=== PATIENT | male | born 1935 | race Caucasian/White ===

== ENCOUNTER → 2016-09-13 | Outpatient (CLI) | payer MEDICARE, OTHER ==
[~2016-09-13] MED LIST: ALLO300T2 PO; ASPI81 PO; CARV6.25 PO; CO Q100C9 PO; EZET10 PO; HYDR-3129 PO; LEVEMIR SQ; METF-324 PO; NITR0.4S SL; ROSU10 PO
[2016-09-13 13:21] LABS: AUTOMATED NEUTROPHIL # 4.8 TH/MM3 (1.8-7.7); BASOPHIL # 0.1 TH/MM3 (0-0.2); BASOPHIL % 0.8 % (0.0-2.0); EOSINOPHIL # 0.1 TH/MM3 (0-0.4); EOSINOPHIL % 1.9 % (0.0-4.0); HEMATOCRIT 36.8 % (39.0-51.0); HEMO FLAGS DIFF FINAL; LYMPH % 25.5 % (9.0-44.0); MEAN CELL VOLUME 91.1 FL (80.0-100.0); MEAN CORPUSCULAR HEMOGLOBIN 29.5 PG (27.0-34.0); MEAN CORPUSCULAR HGB CONC 32.3 % (32.0-36.0); MONO % 10.3 % (0.0-8.0); NEUT % 61.5 % (16.0-70.0); PLATELET COUNT 163 TH/MM3 (150-450); RED BLOOD COUNT 4.04 MIL/MM3 (4.50-5.90); RED CELL DISTRIBUTION WIDTH 17.1 % (11.6-17.2); WHITE BLOOD COUNT 7.8 TH/MM3 (4.0-11.0)
[2016-09-13 13:38] LABS: ALT (GPT) 25 U/L (12-78); ANION GAP 5 MEQ/L (5-15); AST (GOT) 22 U/L (15-37); BICARBONATE 27.4 MEQ/L (21.0-32.0); BLOOD UREA NITROGEN 20 MG/DL (7-18); CHLORIDE 107 MEQ/L (98-107); GLOMERULAR FILTRATION RATE 61 ML/MIN (>89); GLUCOSE,FASTING 110 MG/DL (74-99); POTASSIUM 4.4 MEQ/L (3.5-5.1); SODIUM (NA) 139 MEQ/L (136-145); URIC ACID 3.7 MG/DL (2.6-7.2)
[2016-09-13 13:40] LABS: ALKALINE PHOSPHATASE 71 U/L (45-117); HDL CHOLESTEROL 51.3 MG/DL (40.0-60.0); LDL CHOLESTEROL 38 MG/DL (0-99); TOTAL BILIRUBIN ADULT 0.3 MG/DL (0.2-1.0)
[2016-09-13 17:03] LABS: HEMOGLOBIN A1a 1.1 %; HEMOGLOBIN A1b 2.2 %; HEMOGLOBIN Ao 82.2 %; HEMOGLOBIN LA1C 2.2 %; HEMOGLOBIN P3 6.1 %
== END ==
LOC: PLAB 09:28
PROVIDERS: ATTEND Family Medicine
DX: I25.10 Atherosclerotic heart disease of native coronary artery without angina pectoris (principal); E11.65 Type 2 diabetes mellitus with hyperglycemia; M10.9 Gout, unspecified
CPT/HCPCS: 36415; 80053; 80061; 83036; 84550; 85025

== ENCOUNTER → 2017-03-27 | Outpatient (CLI) | payer MEDICARE, OTHER ==
[2017-03-27 11:54] LABS: AUTOMATED NEUTROPHIL # 4.6 TH/MM3 (1.8-7.7); BASOPHIL % 0.6 % (0.0-2.0); EOSINOPHIL # 0.2 TH/MM3 (0-0.4); EOSINOPHIL % 2.5 % (0.0-4.0); HEMATOCRIT 35.6 % (39.0-51.0); HEMO FLAGS DIFF FINAL; LYMPH % 25.1 % (9.0-44.0); LYMPHOCYTE # 1.9 TH/MM3 (1.0-4.8); MEAN CELL VOLUME 92.3 FL (80.0-100.0); MEAN CORPUSCULAR HEMOGLOBIN 30.4 PG (27.0-34.0); MEAN CORPUSCULAR HGB CONC 32.9 % (32.0-36.0); MONO % 10.3 % (0.0-8.0); NEUT % 61.5 % (16.0-70.0); PLATELET COUNT 164 TH/MM3 (150-450); RED BLOOD COUNT 3.86 MIL/MM3 (4.50-5.90); RED CELL DISTRIBUTION WIDTH 15.7 % (11.6-17.2); WHITE BLOOD COUNT 7.4 TH/MM3 (4.0-11.0)
[2017-03-27 12:21] LABS: ANION GAP 6 MEQ/L (5-15); AST (GOT) 25 U/L (15-37); BICARBONATE 27.3 MEQ/L (21.0-32.0); BLOOD UREA NITROGEN 22 MG/DL (7-18); CHLORIDE 105 MEQ/L (98-107); GLOMERULAR FILTRATION RATE 53 ML/MIN (>89); GLUCOSE,FASTING 116 MG/DL (74-99); POTASSIUM 4.1 MEQ/L (3.5-5.1); SODIUM (NA) 138 MEQ/L (136-145)
[2017-03-27 12:23] LABS: ALT (GPT) 27 U/L (12-78)
[2017-03-27 12:25] LABS: ALKALINE PHOSPHATASE 64 U/L (45-117); HDL CHOLESTEROL 59.6 MG/DL (40.0-60.0); LDL CHOLESTEROL 28 MG/DL (0-99); TOTAL BILIRUBIN ADULT 0.3 MG/DL (0.2-1.0)
[2017-03-27 16:51] LABS: HEMOGLOBIN A1a 1.2 %; HEMOGLOBIN A1b 2.2 %; HEMOGLOBIN Ao 81.3 %; HEMOGLOBIN LA1C 2.3 %; HEMOGLOBIN P3 4.9 %
== END ==
LOC: PLAB 09:23
PROVIDERS: ATTEND Family Medicine
DX: E11.65 Type 2 diabetes mellitus with hyperglycemia (principal); M62.81 Muscle weakness (generalized); R06.00 Dyspnea, unspecified; I25.10 Atherosclerotic heart disease of native coronary artery without angina pectoris; M48.061 Spinal stenosis, lumbar region without neurogenic claudication
CPT/HCPCS: 36415; 80053; 80061; 83036; 85025

== ENCOUNTER → 2017-10-05 | Outpatient (CLI) | payer MEDICARE, OTHER ==
[2017-10-05 18:29] LABS: AUTOMATED NEUTROPHIL # 5.4 TH/MM3 (1.8-7.7); BASOPHIL # 0.1 TH/MM3 (0-0.2); BASOPHIL % 0.7 % (0.0-2.0); EOSINOPHIL # 0.2 TH/MM3 (0-0.4); EOSINOPHIL % 2.3 % (0.0-4.0); HEMATOCRIT 36.2 % (39.0-51.0); HEMOGLOBIN 11.8 GM/DL (13.0-17.0); LYMPHOCYTE # 2.2 TH/MM3 (1.0-4.8); MEAN CORPUSCULAR HEMOGLOBIN 30.2 PG (27.0-34.0); MEAN CORPUSCULAR HGB CONC 32.5 % (32.0-36.0); MEAN PLATELET VOLUME 9.1 FL (7.0-11.0); MONO % 9.3 % (0.0-8.0); MONOCYTE # 0.8 TH/MM3 (0-0.9); NEUT % 62.7 % (16.0-70.0); PLATELET COUNT 189 TH/MM3 (150-450); RED BLOOD COUNT 3.89 MIL/MM3 (4.50-5.90); RED CELL DISTRIBUTION WIDTH 16.5 % (11.6-17.2); WHITE BLOOD COUNT 8.7 TH/MM3 (4.0-11.0)
[2017-10-05 18:42] LABS: ALBUMIN 3.6 GM/DL (3.4-5.0); AST (GOT) 29 U/L (15-37); BICARBONATE 27.3 MEQ/L (21.0-32.0); BLOOD UREA NITROGEN 17 MG/DL (7-18); CALCIUM 8.7 MG/DL (8.5-10.1); CHLORIDE 107 MEQ/L (98-107); CREATININE 1.21 MG/DL (0.60-1.30); GLOMERULAR FILTRATION RATE 57 ML/MIN (>89); GLUCOSE,FASTING 76 MG/DL (74-99); SODIUM (NA) 142 MEQ/L (136-145)
[2017-10-05 18:43] LABS: ALT (GPT) 28 U/L (12-78); CHOLESTEROL 115 MG/DL (120-200)
[2017-10-05 18:45] LABS: ALKALINE PHOSPHATASE 72 U/L (45-117); CHOLESTEROL/ HDL RATIO 2.54 RATIO; HDL CHOLESTEROL 45.1 MG/DL (40.0-60.0); LDL CHOLESTEROL 38 MG/DL (0-99); TOTAL BILIRUBIN ADULT 0.3 MG/DL (0.2-1.0); TOTAL PROTEIN 7.6 GM/DL (6.4-8.2); TRIGLYCERIDES 159 MG/DL (42-150)
== END ==
LOC: PLAB 12:30
PROVIDERS: ATTEND Family Medicine
DX: E78.2 Mixed hyperlipidemia (principal); N18.3 Chronic kidney disease, stage 3 (moderate); E13.42 Other specified diabetes mellitus with diabetic polyneuropathy
CPT/HCPCS: 36415; 80053; 80061; 83970; 85025

== ENCOUNTER → 2017-10-13 | Outpatient (CLI) | payer MEDICARE, OTHER ==
[2017-10-13 10:22] LABS: ALBUMIN 3.6 GM/DL (3.4-5.0); AST (GOT) 25 U/L (15-37); BLOOD UREA NITROGEN 22 MG/DL (7-18); CALCIUM 8.7 MG/DL (8.5-10.1); CHLORIDE 106 MEQ/L (98-107); CREATININE 1.25 MG/DL (0.60-1.30); DIRECT BILIRUBIN ADULT 0.1 MG/DL (0.0-0.2); GLOMERULAR FILTRATION RATE 55 ML/MIN (>89); GLUCOSE,FASTING 91 MG/DL (74-99); SODIUM (NA) 141 MEQ/L (136-145)
[2017-10-13 10:25] LABS: ALKALINE PHOSPHATASE 71 U/L (45-117); ALT (GPT) 27 U/L (12-78); TOTAL BILIRUBIN ADULT 0.3 MG/DL (0.2-1.0); TOTAL PROTEIN 7.9 GM/DL (6.4-8.2)
== END ==
LOC: PLAB 08:16
PROVIDERS: ATTEND Internal Medicine Cardiovascular Disease
DX: E11.9 Type 2 diabetes mellitus without complications (principal); E78.5 Hyperlipidemia, unspecified; I10 Essential (primary) hypertension; I45.10 Unspecified right bundle-branch block
CPT/HCPCS: 36415; 80053; 82248; 82550

== ENCOUNTER 2018-04-28 12:14 | Inpatient (IN) ==
--- NOTE | 2018-04-28 13:14 | XR ---
EXAM DATE: 04/28/2018 1:07 PM EST AGE/SEX: 82 years / Male INDICATIONS: Right knee pain with no history of trauma, patient has had partial knee replacement. CLINICAL DATA: This is the patient's initial encounter. Patient reports that signs and symptoms have been present for 2 days and indicates a pain score of 10/10. MEDICAL/SURGICAL HISTORY: None. . partial rt knee replacement COMPARISON: No prior exams available for comparison. FINDINGS: There is a large suprapatellar knee joint effusion. Partial knee replacement is noted involving the m edial femoral tibial joint with prosthesis in good position. 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 Mild osteoarthritis is noted involving the lateral femoral tibial joint. There is no acute fracture or dislocation. CONCLUSION: 1. Large suprapatellar knee joint effusion. 2. Moderate osteoarthritis involving the patellofemoral joint and mild osteoarthritis involving the lateral femoral tibial joint. 3. No acute fracture or dislocation. Electronically signed by: Hu Angeles MD 04/28/2018 1:12 PM EST
--- NOTE | 2018-04-28 16:05 | ED ---
HPI General Chief Complaint: Extremity Injury, Lower Stated Complaint: Right leg complaint Time Seen by Provider: 04/28/18 15:08 History of Present Illness HPI Narrative: This patient complains of right knee pain and swelling. Duration is 48 hours. Severity is moderate. He has no injury. Denies fever. This is the only joint that is bothering him. Worse with weightbearing. Deviating factors. No exacerbating factors. He does report history of partial knee replacement there. He also has history of gout. He is never had gout in his knee but has had it in his wrist about 4 times. Related Data Allergies Allergy/AdvReac Type Severity Reaction Status Date / Time levofloxacin Allergy Severe Rash Unverified 04/28/18 12:20 Review of Systems ROS: all other systems reviewed are negative PMFSH Social History Social History Substance History: No History of Abuse Smoking Status: Never smoker How Often Do You Have a Drink Containing Alcohol: Monthly or less Recent Travel in [facility] within the Last 8 Weeks: No Recent Out of Country Travel within the Last 8 Weeks: No Immunization History Tetanus Immunization: <5 Years Exam Narrative Exam Narrative: GENERAL: Well-nourished, well-developed patient in no apparent distress. SKIN: Focused skin assessment reveals no rash and nodules. Skin is Warm and dry. HEAD: Atraumatic. Normocephalic. EYES: Pupils equal and round. No scleral icterus. No injection or drainage. ENT: No nasal bleeding or discharge. Mucous membranes pink and moist. NECK: Trachea midline. No JVD. CARDIOVASCULAR: Regular rate and rhythm. No murmur appreciated. RESPIRATORY: No accessory muscle use. Clear to auscultation. Breath sounds equal bilaterally. GASTROINTESTINAL: Abdomen soft, non-tender, nondistended. Hepatic and splenic margins not palpable. MUSCULOSKELETAL: Patient has a very large right knee effusion. There is some warmth at the knee but no redness. There are well-healed surgical scars there. No clubbing. No cyanosis. No edema. NEUROLOGICAL: Awake and alert. No obvious cranial nerve deficits. Motor grossly within normal limits. Normal speech. PSYCHIATRIC: Appropriate mood and affect; insight and judgment normal. Procedures Joint Aspiration/Injection Joint Asp./Inject. 1: Time Out Performed: No Side of Body: right Joint Aspirated: knee Ultrasound Guidance: No Skin Prep: Povidone-Iodine1% Local Anesthesia Used: other (Ethyl chloride spray) Needle Size Used: 18G Fluid Obtained: viscous Total fluid obtained (mL): 50 Patient Tolerated Procedure: well Complications: none Course Reevaluation(s) Reevaluation #1: case reviewed with Dr. Edouard - will admit to medicine service with kavitha and will see in consult Time: 18:45 Reevaluation #2: case reviewed with Dr. Taveras who accepts pt to service Time: 19:16 Initial Documented Vital Signs Temperature 98.2 F 04/28/18 12:16 Pulse Rate 84 04/28/18 12:16 Respiratory Rate 20 04/28/18 12:16 Blood Pressure 142/67 H 04/28/18 12:16 Pulse Oximetry 98 04/28/18 12:16 Last Documented Vital Signs Temperature 98.2 F 04/28/18 12:16 Pulse Rate 84 04/28/18 12:16 Respiratory Rate 20 04/28/18 12:16 Blood Pressure 142/67 H 04/28/18 12:16 Pulse Oximetry 98 04/28/18 12:16 Sign Out Sign Out Data: Patient Sign Out occurred on 04/28/18 at 17:39. Patient's care was discussed, and care was transferred from Donovan Church MD to Meli Leal. Sign Out Comment: Studies from right knee aspiration are pending other than synovial crystal fluid analysis which is negative. General labs have been ordered. Last updated by Donovan Church MD at 04/28/18 16:50 Post-Handoff Eval: Received patient in signout. Patient reports that he had a partial right knee replacement in [place] in 2002 by [facility] Dr. Deyvi Jennings was his surgeon. Patient reports that for the past 2 days, he has been having swelling and tenderness to the right knee. He did call Dr. Faria's office, he cannot be seen for another 10 days, due to the pain, patient decided to come to the emergency room for evaluation. He does not have an orthopedic surgeon here. Joint aspiration shows 900 red blood cells in the synovial fluid , 28,748 nucleated cells as well as 89% neutrophils. There is no crystals. There is concerns for possible septic joint, there was a call made to orthopedic surgeon Medical Decision Making MDM Narrative Medical decision making narrative: 82-year-old male with some pain and swelling and obvious effusion of the right knee. There is warmth without redness or fever. He has history of gout but not able to rule out septic joint without studies. Patient signed informed consent and I performed right knee aspiration under sterile conditions. See above procedure note. There were no complications. I obtained fluid which was sent to the lab for studies. If there is no evidence of infection he can be discharged to outpatient follow- up. The fluid was thick and yellow and looked at least inflammatory. Crystal analysis is negative for crystals. I had a general lab studies. None of the other joint fluid studies are complete yet. Case will be checked out to the evening physician to assist with disposition. Medical Screen Exam Complete: Yes Emergency Medical Condition: Yes Lab Data Result diagrams: 04/28/18 17:50 04/28/18 17:50 Lab Results 04/28/18 04/28/18 04/28/18 Range/Units 15:38 15:38 17:50 WBC 10.5 (4.0-11.0) th/mm3 RBC 3.88 L (4.50-5.90) mil/mm3 Hgb 12.2 L (13.0-17.0) gm/dL Hct 35.3 L (39.0-51.0) % MCV 90.9 (80.0-100.0) fL MCH 31.5 (27.0-34.0) pg MCHC 34.7 (32.0-36.0) % RDW 16.6 (11.6-17.2) % Plt Count 199 (150-450) th/mm3 MPV 9.2 (7.0-11.0) fL Neut % (Auto) 67.1 (16.0-70.0) % Lymph % (Auto) 17.6 (9.0-44.0) % [place] % (Auto) 14.3 H (0.0-8.0) % Eos % (Auto) 0.4 (0.0-4.0) % Baso % (Auto) 0.6 (0.0-2.0) % Neut # (Auto) 7.0 (1.8-7.7) th/mm3 Lymph # (Auto) 1.8 (1.0-4.8) th/mm3 [place] # (Auto) 1.5 H (0.0-0.9) th/mm3 Eos # (Auto) 0.0 (0.0-0.4) th/mm3 Baso # (Auto) 0.1 (0.0-0.2) th/mm3 WBC Differential . Differential Comment Auto diff final PT (9.8-11.6) sec INR Ratio APTT (23.4-31.7) sec Sodium (136-145) meq/L Potassium (3.5-5.1) meq/L Chloride (98-107) meq/L Carbon Dioxide (21.0-32.0) meq/L Anion Gap (5-15) meq/L BUN (7-18) mg/dL Creatinine (0.60-1.30) mg/dL Estimated GFR (>89) mL/min Random Glucose (74-106) mg/dL Calcium (8.5-10.1) mg/dL Synovial Color Yellow (Straw) Synovial Appearance Moderate H (Clear) Synovial RBC 900 H (0-0) /mm3 Synovial Nuc Cells 78458 H (0-200) /mm3 Synovial Neutrophils 89 H (0-25) % Synovial Lymphocytes 1 % Synovial Monocytes 10 % Synovial Crystals None (None) 04/28/18 04/28/18 Range/Units 17:50 17:50 WBC (4.0-11.0) th/mm3 RBC (4.50-5.90) mil/mm3 Hgb (13.0-17.0) gm/dL Hct (39.0-51.0) % MCV (80.0-100.0) fL MCH (27.0-34.0) pg MCHC (32.0-36.0) % RDW (11.6-17.2) % Plt Count (150-450) th/mm3 MPV (7.0-11.0) fL Neut % (Auto) (16.0-70.0) % Lymph % (Auto) (9.0-44.0) % [place] % (Auto) (0.0-8.0) % Eos % (Auto) (0.0-4.0) % Baso % (Auto) (0.0-2.0) % Neut # (Auto) (1.8-7.7) th/mm3 Lymph # (Auto) (1.0-4.8) th/mm3 [place] # (Auto) (0.0-0.9) th/mm3 Eos # (Auto) (0.0-0.4) th/mm3 Baso # (Auto) (0.0-0.2) th/mm3 WBC Differential Differential Comment PT 10.6 (9.8-11.6) sec INR 1.0 Ratio APTT 30.2 (23.4-31.7) sec Sodium 134 L (136-145) meq/L Potassium 4.3 (3.5-5.1) meq/L Chloride 102 (98-107) meq/L Carbon Dioxide 24.9 (21.0-32.0) meq/L Anion Gap 7 (5-15) meq/L BUN 17 (7-18) mg/dL Creatinine 1.10 (0.60-1.30) mg/dL Estimated GFR 64 L (>89) mL/min Random Glucose 120 H (74-106) mg/dL Calcium 9.2 (8.5-10.1) mg/dL Synovial Color (Straw) Synovial Appearance (Clear) Synovial RBC (0-0) /mm3 Synovial Nuc Cells (0-200) /mm3 Synovial Neutrophils (0-25) % Synovial Lymphocytes % Synovial Monocytes % Synovial Crystals (None) Imaging Data Radiologist's impression: Knee X-Ray 04/28/18 00:00 CONCLUSION: 1. Large suprapatellar knee joint effusion. 2. Moderate osteoarthritis involving the patellofemoral joint and mild osteoarthritis involving the lateral femoral tibial joint. 3. No acute fracture or dislocation. Discharge Plan Physicians Team ED Provider: Meli Leal Primary Care Provider: Theodora Pickett Status ED Status: With Doctor
[2018-04-28 17:29] LABS: Appearance,Synovial Fluid Moderate (Clear); Color,Synovial Fluid Yellow (Straw); Lymphocytes,Synovial Fluid 1 %; Neutrophils,Synovial Fluid 89 % (0-25)
[2018-04-28 18:25] LABS: Baso # (Auto) 0.1 th/mm3 (0.0-0.2); Baso % (Auto) 0.6 % (0.0-2.0); Eos % (Auto) 0.4 % (0.0-4.0); Hematocrit 35.3 % (39.0-51.0); Hemoglobin 12.2 gm/dL (13.0-17.0); Lymph # (Auto) 1.8 th/mm3 (1.0-4.8); Lymph % (Auto) 17.6 % (9.0-44.0); Mean Corpuscular HGB Conc 34.7 % (32.0-36.0); Mean Corpuscular Hemoglobin 31.5 pg (27.0-34.0); Mean Corpuscular Volume 90.9 fL (80.0-100.0); Mean Platelet Volume 9.2 fL (7.0-11.0); Mono # (Auto) 1.5 th/mm3 (0.0-0.9); Mono % (Auto) 14.3 % (0.0-8.0); Neut % (Auto) 67.1 % (16.0-70.0); Platelet Count 199 th/mm3 (150-450); Red Blood Count 3.88 mil/mm3 (4.50-5.90); Red Cell Distribution Width 16.6 % (11.6-17.2); White Blood Count 10.5 th/mm3 (4.0-11.0)
[2018-04-28 18:37] LABS: Activated Partial Thrombo Time 30.2 sec (23.4-31.7); Prothrombin Time 10.6 sec (9.8-11.6)
[2018-04-28 18:49] LABS: Calcium 9.2 mg/dL (8.5-10.1); Carbon Dioxide 24.9 meq/L (21.0-32.0); Potassium 4.3 meq/L (3.5-5.1)
[2018-04-28] MEDS ORDERED: Vancomycin Inj 1,000 MG in Sodium Chlor 0.9% Inj 250 ML IV.SIG SCH (19:00)
[2018-04-28] MEDS ORDERED: Vancomycin Consult Pharmacy OTHER PRN (19:35)
[2018-04-28] MEDS ORDERED: Bisacodyl 10 MG Supp RECTAL PRN (19:36)
[2018-04-28] MEDS ORDERED: Acetaminophen 325 MG Tablet PO PRN (19:36)
[2018-04-28] MEDS: Sod Chloride 0.9% Inj 1,000 ML IV.CONT SCH (19:51)
[2018-04-28] MEDS ORDERED: Vancomycin Inj 2,250 MG in Sodium Chlor 0.9% Inj 500 ML IV.SIG ONE (20:00)
--- NOTE | 2018-04-28 20:39 | P.HPIM ---
History of Present Illness Primary Care Physician: Theodora Pickett MD History of Present Illness: This is an 82-year-old male with no significant PMH who presented to the ER with complaints of right knee pain and swelling since (2 days ago). Denies injury/trauma. No h/o similar symptoms. No fever, chills. Pain is constant, 8/10, sharp, worse w/ movement/ambulation, non-radiating. On arrival , BP 142/67, HR 84, O2 sat 98% on RA, Afebrile. CBC essentially unremarkable. INR 1.0. Chemistry unremarkable. S/p tap in ER, Nuc 28,740 and Neutrophils 89% . S/p Vanc/Rocephin in ER. Ortho consulted, will evaluate. - Diagnosis (1) Septic joint of right knee joint (2) Knee pain Inpatient Certification: I certify that the inpatient services were ordered in accordance with Medicare regulations governing the order. This includes certification that hospital inpatient services are reasonable and necessary and in the case of services not specified as inpatient-only under 42 CFR 419.22(n), that they are appropriately provided as inpatient services in accordance to with the 2-midnight benchmark under 43 CFR 412.3(e) Estimated Total Length of Stay (Days): 2 Plans for Post Hospital Care: Not yet determined Review of Systems PAST FAMILY HISTORY: Reviewed. No h/o DM or CAD All other systems reviewed negative except as stated [facility] - History History Provided By: Patient, Family Member - Surgical History Surgical History: Surgical History (Last Reviewed 04/28/18 @ 14:53 by Nay Robins) H/O elbow surgery History of cholecystectomy History of knee replacement S/P CABG x 4 - Tobacco History Smoking Status: Never smoker - Alcohol History How Often Do You Have a Drink Containing Alcohol: Monthly or less - Substance Use History Substance History: No History of Abuse - Travel History Recent Travel in the [place] Within the Last 8 Weeks: No Recent Travel Out of the Country Within the Last 8 Weeks: No - Immunization History Tetanus Immunization: <5 Years Medications and Allergies Active Medications: Active Medications Acetaminophen (Tylenol) 650 mg PO Q4H PRN PRN Reason: Temp > 100.4 Hydrocodone Bitart/Acetaminophen ([place] 5/325) 1 tab PO Q4H PRN PRN Reason: PAIN 3-5 Hydrocodone Bitart/Acetaminophen ([place] 10/325) 1 tab PO Q4H PRN PRN Reason: PAIN 6-10 Al Hydroxide/Mg Hydroxide (Milk Of Magnesia Liq) 30 ml PO Q12H PRN PRN Reason: Mild Constipation Bisacodyl (Dulcolax Supp) 10 mg RECTAL DAILY PRN PRN Reason: SEVERE CONSITIPATION Ceftriaxone Sodium 1,000 mg/ (Sodium Chloride) 100 mls @ 200 mls/hr IV.SIG Q24H MAURA Sodium Chloride (Ns Inj) 1,000 mls @ 100 mls/hr IV.CONT .Q10H MAURA Last Admin: 04/28/18 19:51 Dose: 100 mls/hr Vancomycin HCl 2,250 mg/ (Sodium Chloride) 522.5 mls @ 250 mls/hr IV.SIG ONCE ONE Stop: 04/28/18 22:05 Lactulose (Lactulose Liq) 30 ml PO DAILY PRN PRN Reason: SEVERE CONSITIPATION Ondansetron HCl (Zofran Inj) 4 mg IV.PUSH Q6H PRN PRN Reason: NAUSEA OR VOMITING Pharmacy Profile Note (Vancomycin Consult Pharmacy) 1 each OTHER UNSCH PRN PRN Reason: Pharmacy to dose Senna/Docusate Sodium (Dionne-Colace) 1 tab PO BID MAURA Sennosides (Senokot) 17.2 mg PO Q12H PRN PRN Reason: Moderate Constipation Sodium Chloride (Ns Flush) 2 ml IV.FLUSH BID MAURA Sodium Chloride (Ns Flush) 2 ml IV.FLUSH PRN PRN PRN Reason: FLUSH AFTER USING IV ACCESS Allergies Allergy/AdvReac Type Severity Reaction Status Date / Time levofloxacin Allergy Severe Rash Unverified 04/28/18 12:20 Exam Vital signs: Vital Signs 04/28/18 12:16 04/28/18 19:00 04/28/18 20:38 Temperature 98.2 F Pulse Rate 84 96 H 94 H Respiratory Rate 20 20 20 Blood Pressure 142/67 H 148/70 H 150/72 H Pulse Oximetry 98 94 L 95 Intake & Output 04/28/18 04/28/18 04/29/18 06:59 18:59 06:59 Intake Total 100 / 100 Balance 100 / 100 Weight 90.718 kg Intake: IV 100 / 100 Rocephin Inj 1,000 MG In NS Inj 100 / 100 100 ML @ 200 mls/hr IV.SIG ONCE ONE Rx#:[id number] Narrative: PE: GENERAL: Very pleasant elderly white male in no acute distress, appears younger than stated age. SKIN: Focused skin assessment warm and dry. HEENT: PERRLA, EOMI. No scleral icterus or conjunctival pallor. No lid lag or facial droop. CARDIOVASCULAR: Regular rate and rhythm. No obvious murmurs to auscultation. No chest tenderness to palpation. RESPIRATORY: No obvious rhonchi or wheezing. Clear to auscultation. Breath sounds equal bilaterally. GASTROINTESTINAL: Abdomen soft, non-tender, nondistended. BS normal. MUSCULOSKELETAL: Extremities without clubbing, cyanosis, or edema. No obvious deformities. Right knee w/ joint effusion, no erythema, +warmth/tenderness. NEUROLOGICAL: Awake, alert and oriented x4. No focal neurologic deficits. Moving both upper and lower extremities spontaneously. PSYCHIATRIC: Appropriate mood and affect. Insight and judgment normal. Results - Labs CBC & Chem 7: 04/28/18 17:50 04/28/18 17:50 Labs: Short CBC 04/28/18 Range/Units 17:50 WBC 10.5 (4.0-11.0) th/mm3 Hgb 12.2 L (13.0-17.0) gm/dL Hct 35.3 L (39.0-51.0) % Plt Count 199 (150-450) th/mm3 BMP 04/28/18 17:50 Sodium 134 L Potassium 4.3 Chloride 102 Carbon Dioxide 24.9 BUN 17 Creatinine 1.10 Calcium 9.2 - Imaging Impressions Knee X-Ray 04/28/18 00:00 CONCLUSION: 1. Large suprapatellar knee joint effusion. 2. Moderate osteoarthritis involving the patellofemoral joint and mild osteoarthritis involving the lateral femoral tibial joint. 3. No acute fracture or dislocation. Caprini VTE Risk Assessment Caprini VTE Risk Assessment: No/Low Risk (score <= 1) VTE Pharmacological Exception Reason: High risk for bleeding Caprini Risk Assessment Model: Point Value = 1 Point Value = 2 Point Value = 3 Point Value = 5 Age 41-60 Minor surgery BMI > 25 kg/m2 Swollen legs Varicose veins or History of unexplained or recurrent spontaneous Oral contraceptives or hormone replacement Sepsis (< 1 month) Serious lung disease, including pneumonia (< 1 month) Abnormal pulmonary function Acute myocardial infarction Congestive heart failure (< 1 month) History of inflammatory bowel disease Medical patient at bed rest Age 61-74 Arthroscopic surgery Major open surgery (> 45 min) Laparoscopic surgery (> 45 min) Malignancy Confined to bed (> 72 hours) Immobilizing plaster cast Central venous access Age >= 75 History of VTE Family history of VTE Factor V Leiden Prothrombin [id number] Lupus anticoagulant Anticardiolipin antibodies Elevated serum homocysteine Heparin-induced thrombocytopenia Other congenital or acquired thrombophilia Stroke (< 1 month) Elective arthroplasty Hip, pelvis, or leg fracture Acute spinal cord injury (< 1 month) Prophylaxis Regimen: Total Risk Factor Score Risk Level Prophylaxis Regimen 0-1 Low Early ambulation 2 Moderate Order ONE of the following: *Sequential Compression Device (SCD) *Heparin 5000 units SQ BID 3-4 Higher Order ONE of the following medications: *Heparin 5000 units SQ TID *Enoxaparin/Lovenox 40 mg SQ daily (WT < 150 kg, CrCl > 30 mL/min) *Enoxaparin/Lovenox 30 mg SQ daily (WT < 150 kg, CrCl > 10-29 mL/min) *Enoxaparin/Lovenox 30 mg SQ BID (WT < 150 kg, CrCl > 30 mL/min) AND/OR *Sequential Compression Device (SCD) 5 or more Highest Order ONE of the following medications: *Heparin 5000 units SQ TID (Preferred with Epidurals) *Enoxaparin/Lovenox 40 mg SQ daily (WT < 150 kg, CrCl > 30 mL/min) *Enoxaparin/Lovenox 30 mg SQ daily (WT < 150 kg, CrCl > 10-29 mL/min) *Enoxaparin/Lovenox 30 mg SQ BID (WT < 150 kg, CrCl > 30 mL/min) AND *Sequential Compression Device (SCD) Assessment and Plan - Assessment (1) Septic joint of right knee joint Code(s): M00.9 - Pyogenic arthritis, unspecified Status: Acute (2) Knee pain Code(s): M25.569 - Pain in unspecified knee Status: Acute - Plan A/P: 1. Right Knee Septic Joint: acute onset pain/swelling 2 days ago, s/p tap w/ elevated nuc and neutrophils, +cloudy per report, s/p Vanc/Rocephin in ER. Ortho consulted by ER physician, will evaluate. Continue w/ IV abx, follow up cultures. 2. Knee Pain: secondary to above, continue w/ analgesics/antiemetics as needed. 3. DVT Prophylaxis: Pharmacologic contraindication due to risk of bleed 4. Social work for d/c planning as needed. 5. Case discussed w/ ER physician at length, labs/records/imaging reviewed by me.
[2018-04-28] MEDS: Senna/Docusate Sodium 8.6/50 MG Tablet PO SCH (23:00)
[2018-04-29] MEDS: Sod Chloride 0.9% Inj 1,000 ML IV.CONT SCH ×5 (06:37→21:00)
[2018-04-29 07:26] LABS: Baso % (Auto) 0.4 % (0.0-2.0); Eos # (Auto) 0.1 th/mm3 (0.0-0.4); Eos % (Auto) 0.8 % (0.0-4.0); Hematocrit 34.8 % (39.0-51.0); Hemoglobin 11.7 gm/dL (13.0-17.0); Lymph # (Auto) 1.5 th/mm3 (1.0-4.8); Lymph % (Auto) 17.6 % (9.0-44.0); Mean Corpuscular HGB Conc 33.6 % (32.0-36.0); Mean Corpuscular Hemoglobin 30.8 pg (27.0-34.0); Mean Corpuscular Volume 91.8 fL (80.0-100.0); Mean Platelet Volume 8.9 fL (7.0-11.0); Mono # (Auto) 1.4 th/mm3 (0.0-0.9); Mono % (Auto) 16.3 % (0.0-8.0); Neut # (Auto) 5.5 th/mm3 (1.8-7.7); Neut % (Auto) 64.9 % (16.0-70.0); Platelet Count 176 th/mm3 (150-450); Red Blood Count 3.79 mil/mm3 (4.50-5.90); Red Cell Distribution Width 16.4 % (11.6-17.2); White Blood Count 8.5 th/mm3 (4.0-11.0)
[2018-04-29 07:50] LABS: Alanine Aminotransferase 26 U/L (12-78); Albumin 2.9 g/dL (3.4-5.0); Anion Gap 5 meq/L (5-15); Aspartate Aminotransferase 32 U/L (15-37); Blood Urea Nitrogen 15 mg/dL (7-18); Calcium 8.4 mg/dL (8.5-10.1); Carbon Dioxide 28.9 meq/L (21.0-32.0); Chloride 104 meq/L (98-107); Glomerular Filtration Rate 67 mL/min (>89); Glucose,Random 149 mg/dL (74-106); Potassium 4.9 meq/L (3.5-5.1); Sodium 138 meq/L (136-145)
[2018-04-29 07:52] LABS: Alkaline Phosphatase 81 U/L (45-117); Total Protein 7.6 g/dL (6.4-8.2)
[2018-04-29] MEDS ORDERED: Dextrose 50% in Water 50 ML Vial IV.PUSH PRN (08:02)
--- NOTE | 2018-04-29 08:03 | P.PN ---
Subjective Interval history: Follow-up for right knee septic joint. Patient reports continued diffuse right knee pain, swelling, warmth. He reports he has been unable to ambulate and unable to bend the knee. He denies any recent injury, trauma, or open wound to the knee. He states his symptoms came out of nowhere a few days ago. He denies any fevers or chills overnight. He denies any other medical complaints including no chest pain, shortness of breath, or abdominal complaints. He states he follows with supervisor soakers Dr. Quintero. 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 He denies any recent chest pains with or without exertion. He reports unremarkable echocardiogram within the past 2 years. Denies any other medical complaints. Physical Exam Vital signs: Vital Signs 04/28/18 12:16 04/28/18 19:00 04/28/18 20:38 Temperature 98.2 F Pulse Rate 84 96 H 94 H Respiratory Rate 20 20 20 Blood Pressure 142/67 H 148/70 H 150/72 H Pulse Oximetry 98 94 L 95 04/28/18 22:17 04/29/18 04:00 Temperature 97.3 F L 98.5 F Pulse Rate 90 83 Respiratory Rate 17 16 Blood Pressure 172/76 H 132/67 Pulse Oximetry 96 94 L Intake & Output 04/28/18 04/29/18 04/29/18 18:59 06:59 18:59 Intake Total 622.5 / 622.5 Balance 622.5 / 622.5 Weight 90.718 kg Intake: IV 622.5 / 622.5 Vancomycin Inj 2,250 MG In NS 522.5 / 522.5 Inj 500 ML @ 250 mls/hr IV.SIG ONCE ONE Rx#:[id number] Rocephin Inj 1,000 MG In NS Inj 100 / 100 100 ML @ 200 mls/hr IV.SIG ONCE ONE Rx#:[id number] Other: Date of Last Bowel Movement 04/27/18 Narrative: GENERAL: Well-nourished, well-developed very pleasant elderly male patient in [facility]. SKIN: Warm and dry. No rash. HEENT: Normocephalic. Atraumatic. Pupils equal and round. Mucous membranes pink and moist. CARDIOVASCULAR: Regular rate and rhythm. No murmur appreciated. RESPIRATORY: No accessory muscle use. Clear to auscultation. Breath sounds equal bilaterally. GASTROINTESTINAL: Abdomen soft, non-tender, nondistended. Normoactive bowel sounds x4. MUSCULOSKELETAL: No obvious deformities. Extremities without clubbing, cyanosis , or edema. Right anterior knee with diffuse edema/effusion, with warmth and tenderness to palpation, no significant erythema. Decreased right knee flexion secondary to swelling and pain. NEUROLOGICAL: Awake and alert. No obvious cranial nerve deficits. Moving all extremities spontaneously. Normal speech. PSYCHIATRIC: Appropriate mood and affect; insight and judgment normal. Results - Labs CBC & Chem 7: 04/29/18 05:59 04/29/18 05:59 Laboratory Results - last 24 hr 04/28/18 04/28/18 04/28/18 15:38 15:38 17:50 WBC 10.5 RBC 3.88 L Hgb 12.2 L Hct 35.3 L MCV 90.9 MCH 31.5 MCHC 34.7 RDW 16.6 Plt Count 199 MPV 9.2 Neut % (Auto) 67.1 Lymph % (Auto) 17.6 [place] % (Auto) 14.3 H Eos % (Auto) 0.4 Baso % (Auto) 0.6 Neut # (Auto) 7.0 Lymph # (Auto) 1.8 [place] # (Auto) 1.5 H Eos # (Auto) 0.0 Baso # (Auto) 0.1 WBC Differential . Differential Comment Auto diff final PT INR APTT Sodium Potassium Chloride Carbon Dioxide Anion Gap BUN Creatinine Estimated GFR Random Glucose Calcium Synovial Color Yellow Synovial Appearance Moderate H Synovial RBC 900 H Synovial Nuc Cells 72551 H Synovial Neutrophils 89 H Synovial Lymphocytes 1 Synovial Monocytes 10 Synovial Crystals None 04/28/18 04/28/18 04/29/18 17:50 17:50 05:59 WBC 8.5 RBC 3.79 L Hgb 11.7 L Hct 34.8 L MCV 91.8 MCH 30.8 MCHC 33.6 RDW 16.4 Plt Count 176 MPV 8.9 Neut % (Auto) 64.9 Lymph % (Auto) 17.6 [place] % (Auto) 16.3 H Eos % (Auto) 0.8 Baso % (Auto) 0.4 Neut # (Auto) 5.5 Lymph # (Auto) 1.5 [place] # (Auto) 1.4 H Eos # (Auto) 0.1 Baso # (Auto) 0.0 WBC Differential . Differential Comment Auto diff final PT 10.6 INR 1.0 APTT 30.2 Sodium 134 L Potassium 4.3 Chloride 102 Carbon Dioxide 24.9 Anion Gap 7 BUN 17 Creatinine 1.10 Estimated GFR 64 L Random Glucose 120 H Calcium 9.2 Synovial Color Synovial Appearance Synovial RBC Synovial Nuc Cells Synovial Neutrophils Synovial Lymphocytes Synovial Monocytes Synovial Crystals - Imaging Impressions Knee X-Ray 04/28/18 00:00 CONCLUSION: 1. Large suprapatellar knee joint effusion. 2. Moderate osteoarthritis involving the patellofemoral joint and mild osteoarthritis involving the lateral femoral tibial joint. 3. No acute fracture or dislocation. Assessment and Plan - Assessment (1) Septic joint of right knee joint Code(s): M00.9 - Pyogenic arthritis, unspecified Status: Acute (2) Knee pain Code(s): M25.569 - Pain in unspecified knee Status: Acute - Plan 82-year-old male with PMH of CAD s/p 4vessel CABG in 1993 and DM who presented to the ER with complaints of spontaneous right knee pain and swelling since (04/26). Right Knee Septic Joint: acute onset pain/swelling 2 days ago -s/[place] aspiration [place], [place] [address] and neutrophils 89, + yellow/cloudy per report -Cultures pending -Continue antibiotics with IV Rocephin and IV Vanco with pharmacy consult -Pain control with [place] prn -Ortho consulted, plans for I&D today 04/29 -Give IVF while NPO for surgery Acute Right Knee Pain: secondary to above -continue w/ analgesics/antiemetics as needed. -Will need PT consult post operatively CAD: s/p 4vessel CABG in 1993, EMR reviewed, had repeat cath in 2016 which showed 3 out of 4 grafts patent. Follows with Dr. Laboy as outpatient. -holding patient's aspirin for now with upcoming surgery -continue patient's coreg and statin (RN to update home med list) -patient denies any recent chest pains or angina equivalent DM: chronic -hold patient's metformin (RN to update home med list) -monitor Accu-checks and cover with SSI DVT Prophylaxis: teds/SCDs to the LLE, holding chemical prophylaxis with upcoming procedure
[2018-04-29] MEDS ORDERED: ceFAZolin 1 GM Premix Inj 2 GM/100 ML PIGGYBACK IV.SIG ONE (08:16)
[2018-04-29] MEDS ORDERED: Succinylcholine Inj 100 MG/5 ML Syringe IV.PUSH ONE (08:20)
[2018-04-29] MEDS ORDERED: Phenylephrine/NS 1000 MCG/10ML Syringe IV.PUSH ONE (08:20)
--- NOTE | 2018-04-29 08:23 | P.CONOP ---
[facility] Orthopedics Consult Note - [facility] Consult date: 04/28/18 Requesting physician: Theodora Pickett Consult reason: joint pain Chief complaint: Septic Joint Narrative: 82 year old male with history of unicompartmental knee arthroplasty in 2002 presented to the ED with severe right knee pain and swelling. He states it began and he tried to make an appointment with Dr. Manley, but was given an appointment in 2 weeks. The pain became so severe he came to the ED instead. He is unable to move the knee without severe pain. He reports no previous issues with his knee after the surgery. He denies injury. The knee was aspirated by the ED with results consistent with septic joint. Of note, he has a left unicompartmental knee arthroplasty as well and denies any issues with that knee. Review of Systems All other systems reviewed negative except as stated in [facility] PMF[facility] - History History Provided By: Patient - Surgical History Surgical History: Surgical History (Last Reviewed 04/29/18 @ 08:09 by Kamryn Calzada MD) H/O elbow surgery History of cholecystectomy History of knee replacement S/P CABG x 4 - Social History I have reviewed the patient's Social History: Yes - Tobacco History Second Hand Smoke Exposure: No Tobacco Use In Past 30 Days: No Smoking Status: Former smoker - Alcohol History How Often Do You Have a Drink Containing Alcohol: Never - Substance Use History Substance History: No History of Abuse - Travel History Recent Travel in the [place] Within the Last 8 Weeks: No Recent Travel Out of the Country Within the Last 8 Weeks: No - Immunization History Tetanus Immunization: <5 Years Medications and Allergies Active Medications: Active Medications Acetaminophen (Tylenol) 650 mg PO Q4H PRN PRN Reason: Temp > 100.4 Hydrocodone Bitart/Acetaminophen ([place] 5/325) 1 tab PO Q4H PRN PRN Reason: PAIN 3-5 Hydrocodone Bitart/Acetaminophen ([place] 10/325) 1 tab PO Q4H PRN PRN Reason: PAIN 6-10 Last Admin: 04/29/18 03:59 Dose: 1 tab Al Hydroxide/Mg Hydroxide (Milk Of Magnesia Liq) 30 ml PO Q12H PRN PRN Reason: Mild Constipation Bisacodyl (Dulcolax Supp) 10 mg RECTAL DAILY PRN PRN Reason: SEVERE CONSITIPATION Ceftriaxone Sodium 1,000 mg/ (Sodium Chloride) 100 mls @ 200 mls/hr IV.SIG Q24H [facility] Sodium Chloride (Ns Inj) 1,000 mls @ 100 mls/hr IV.CONT .Q10H [facility] Last Infusion: 04/29/18 07:53 Dose: 100 mls/hr Lactulose (Lactulose Liq) 30 ml PO DAILY PRN PRN Reason: SEVERE CONSITIPATION Ondansetron HCl (Zofran Inj) 4 mg IV.PUSH Q6H PRN PRN Reason: NAUSEA OR VOMITING Pharmacy Profile Note (Vancomycin Consult Pharmacy) 1 each OTHER UNSCH PRN PRN Reason: Pharmacy to dose Senna/Docusate Sodium (Dionne-Colace) 1 tab PO BID [facility] Last Admin: 04/28/18 23:00 Dose: 1 tab Sennosides (Senokot) 17.2 mg PO Q12H PRN PRN Reason: Moderate Constipation Sodium Chloride (Ns Flush) 2 ml IV.FLUSH BID [facility] Last Admin: 04/28/18 23:00 Dose: 2 ml Sodium Chloride (Ns Flush) 2 ml IV.FLUSH PRN PRN PRN Reason: FLUSH AFTER USING IV ACCESS Allergies Allergy/AdvReac Type Severity Reaction Status Date / Time levofloxacin Allergy Severe Rash Unverified 04/28/18 12:20 Exam Vital signs: Vital Signs 04/28/18 12:16 04/28/18 19:00 04/28/18 20:38 Temperature 98.2 F Pulse Rate 84 96 H 94 H Respiratory Rate 20 20 20 Blood Pressure 142/67 H 148/70 H 150/72 H Pulse Oximetry 98 94 L 95 04/28/18 22:17 04/29/18 04:00 Temperature 97.3 F L 98.5 F Pulse Rate 90 83 Respiratory Rate 17 16 Blood Pressure 172/76 H 132/67 Pulse Oximetry 96 94 L Intake & Output 04/28/18 04/29/18 04/29/18 18:59 06:59 18:59 Intake Total 622.5 / 622.5 700 / 700 Balance 622.5 / 622.5 700 / 700 Weight 90.718 kg Intake: IV 622.5 / 622.5 700 / 700 NS Inj 1,000 ML @ 100 mls/hr IV 700 / 700 .CONT .Q10H [facility] Rx#:[id number] Vancomycin Inj 2,250 MG In NS 522.5 / 522.5 Inj 500 ML @ 250 mls/hr IV.SIG ONCE ONE Rx#:[id number] Rocephin Inj 1,000 MG In NS Inj 100 / 100 100 ML @ 200 mls/hr IV.SIG ONCE ONE Rx#:[id number] Other: Date of Last Bowel Movement 04/27/18 - Constitutional no acute distress - Routine HEENT Exam Head: Present: normocephalic Eye: Present: EOMI - Routine Neck Exam Present: supple - Routine Respiratory Exam Absent: accessory muscle use - Routine Cardiovascular Exam Present: RRR - Routine Extremities Exam Comments: right knee with well healed anteromedial incision. Large effusion. Knee is held flexed at about 10 degrees, and any attempted ROM is painful. He is neurovascularly intact distally. Left knee exam shows well healed anteromedial incision, with no effusion and full active range of motion. Neurovascularly intact distally. Results - Labs Result Diagrams: 04/29/18 05:59 04/29/18 05:59 Labs: Laboratory Results - last 24 hr 04/28/18 04/28/18 04/28/18 15:38 15:38 17:50 WBC 10.5 RBC 3.88 L Hgb 12.2 L Hct 35.3 L MCV 90.9 MCH 31.5 MCHC 34.7 RDW 16.6 Plt Count 199 MPV 9.2 Neut % (Auto) 67.1 Lymph % (Auto) 17.6 [place] % (Auto) 14.3 H Eos % (Auto) 0.4 Baso % (Auto) 0.6 Neut # (Auto) 7.0 Lymph # (Auto) 1.8 [place] # (Auto) 1.5 H Eos # (Auto) 0.0 Baso # (Auto) 0.1 WBC Differential . Differential Comment Auto diff final PT INR APTT Sodium Potassium Chloride Carbon Dioxide Anion Gap BUN Creatinine Estimated GFR Random Glucose Calcium Total Bilirubin AST ALT Alkaline Phosphatase Total Protein Albumin Synovial Color Yellow Synovial Appearance Moderate H Synovial RBC 900 H Synovial Nuc Cells 10834 H Synovial Neutrophils 89 H Synovial Lymphocytes 1 Synovial Monocytes 10 Synovial Crystals None 04/28/18 04/28/18 04/29/18 17:50 17:50 05:59 WBC 8.5 RBC 3.79 L Hgb 11.7 L Hct 34.8 L MCV 91.8 MCH 30.8 MCHC 33.6 RDW 16.4 Plt Count 176 MPV 8.9 Neut % (Auto) 64.9 Lymph % (Auto) 17.6 [place] % (Auto) 16.3 H Eos % (Auto) 0.8 Baso % (Auto) 0.4 Neut # (Auto) 5.5 Lymph # (Auto) 1.5 [place] # (Auto) 1.4 H Eos # (Auto) 0.1 Baso # (Auto) 0.0 WBC Differential . Differential Comment Auto diff final PT 10.6 INR 1.0 APTT 30.2 Sodium 134 L Potassium 4.3 Chloride 102 Carbon Dioxide 24.9 Anion Gap 7 BUN 17 Creatinine 1.10 Estimated GFR 64 L Random Glucose 120 H Calcium 9.2 Total Bilirubin AST ALT Alkaline Phosphatase Total Protein Albumin Synovial Color Synovial Appearance Synovial RBC Synovial Nuc Cells Synovial Neutrophils Synovial Lymphocytes Synovial Monocytes Synovial Crystals 04/29/18 05:59 WBC RBC Hgb Hct MCV MCH MCHC RDW Plt Count MPV Neut % (Auto) Lymph % (Auto) [place] % (Auto) Eos % (Auto) Baso % (Auto) Neut # (Auto) Lymph # (Auto) [place] # (Auto) Eos # (Auto) Baso # (Auto) WBC Differential Differential Comment PT INR APTT Sodium 138 Potassium 4.9 Chloride 104 Carbon Dioxide 28.9 Anion Gap 5 BUN 15 Creatinine 1.06 Estimated GFR 67 L Random Glucose 149 H Calcium 8.4 L D Total Bilirubin 0.5 AST 32 ALT 26 Alkaline Phosphatase 81 Total Protein 7.6 Albumin 2.9 L Synovial Color Synovial Appearance Synovial RBC Synovial Nuc Cells Synovial Neutrophils Synovial Lymphocytes Synovial Monocytes Synovial Crystals - Diagnostic results Imaging: Impressions Knee X-Ray 04/28/18 00:00 CONCLUSION: 1. Large suprapatellar knee joint effusion. 2. Moderate osteoarthritis involving the patellofemoral joint and mild osteoarthritis involving the lateral femoral tibial joint. 3. No acute fracture or dislocation. 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 Risks, benefits, alternatives discussed with patient.I discussed the significant possibilty of continued infection, possibly needing further surgical procedures including open surgery and removal of his implant. He agrees to proceed.
--- NOTE | 2018-04-29 09:51 | P.BOP ---
- Preoperative Diagnosis (1) Septic joint of right knee joint - Postoperative Diagnosis (1) Septic joint of right knee joint Date of procedure: 04/29/18 Procedure: right knee arthroscopic irrigation and debridement Anesthesia: GETA Surgeon: Kamryn Calzada MD Estimated blood loss (mL): 10 Pathology: other (joint fluid sent to microbiology) Condition: stable Disposition: PACU
[2018-04-29] MEDS: Carvedilol 6.25 MG Tablet PO SCH ×2 (10:06→20:56)
[2018-04-29] MEDS: Senna/Docusate Sodium 8.6/50 MG Tablet PO SCH ×2 (10:06→20:56)
[2018-04-29] MEDS: Insulin NovoLOG Aspart Correctional Sugar Inj SQ SCH ×4 (10:19→21:15)
[2018-04-29] MEDS ORDERED: fentaNYL Citrate Inj 100 MCG/2 ML Ampul ONE (11:12)
--- NOTE | 2018-04-29 21:11 | P.PNADD ---
Addendum to Inpatient Note Reason for Addendum: Additional Documentation (Patient was treated for diverticulitis with cipro and flagyl 02/09/18--not sure if that could be a source for joint infection. Need to make sure his GI symptoms have completely resolved. Dr. Pickett (Primary care outpatient))
[2018-04-29] MEDS: Vancomycin Inj 2,000 MG in Sodium Chlor 0.9% Inj 500 ML IV.SIG SCH (23:15)
[2018-04-30] MEDS: Sod Chloride 0.9% Inj 1,000 ML IV.CONT SCH ×4 (02:28→22:00)
[2018-04-30] MEDS: Carvedilol 6.25 MG Tablet PO SCH ×2 (08:20→20:27)
[2018-04-30] MEDS: Senna/Docusate Sodium 8.6/50 MG Tablet PO SCH ×2 (08:20→20:27)
[2018-04-30] MEDS: Insulin NovoLOG Aspart Correctional Sugar Inj SQ SCH ×4 (08:21→21:43)
--- NOTE | 2018-04-30 14:30 | P.PNIM ---
Subjective Interval history: Pt found sitting upright in chair in room, dressed in hospital gown, NAD. Alert and Oriented x4. Pt continues to Endorse Nonradiating Pain of the Right Knee Joint that is 10/10 with ambulating or bending it and 2/10 at rest. Endorses mild constipation, was given stool softener by nurses this morning, Last BM was prior to admission. Denies any Fever, Fatigue, PERALES, Chest Pain, SOB, N/V, Abdominal Pain, Diarrhea, Dysuria, Paraesthesias, Rash, Pruritus, or Ecchymoses. New Historical Info Obtained from Pt - Treated for Diverticulitis w/ Flagyl and Cipro on 02/09/18 - Cyst Removal on Back 1 week prior to onset of sx, no ABx given at that time per pt - Tooth Removal by Dr. Abbasi ([facility]) 2 weeks prior to onset of sx, was given "12 pills, I took 3 the first day and 2 the next" but cannot recall name, most likely ABx (PCN, Ampicillin, or Clindamycin) ROS GEN: Good Appetite, Sleeping Well; Denies Fever, Fatigue HEENT: Denies PERALES, Vision Changes, Oral Pain, Sore Throat, Neck Pain Cardio: Denies Chest Pain, Jaw/Arm Claudication, Edema Lungs: Denies SOB, Cough GI: Endorses Mild Constipation; Denies N/V, Abdominal pain, Diarrhea, Melena, Hematochezia : Denies Dysuria, Hematuria, Suprapubic/Pelvic pain Neuro: Denies any Fatigue or Weakness MSK: Endorses Pain and Swelling of Right Knee Joint (10/10 ambulating; 2/10 rest ); Denies any other muscle aches/pains or joint pain/swelling Skin: Denies any rash, pruritus, or ecchymoses Attending note: -Records reviewed. Appreciate PCP input. Patient reports he is feeling okay today. No GI symptoms. He does have some right knee pain but was able to ambulate with physical therapy. No fevers. History above reviewed with the patient. Physical Exam Vital signs: Vital Signs 04/29/18 15:28 04/29/18 20:00 04/30/18 00:00 Temperature 97.4 F L 98.0 F 97.8 F Pulse Rate 76 82 80 Respiratory Rate 18 18 18 Blood Pressure 108/53 L 110/59 L 121/58 L Pulse Oximetry 94 L 91 L 91 L 04/30/18 04:00 04/30/18 07:00 04/30/18 07:59 Temperature 97.6 F 97.3 F L Pulse Rate 84 70 Respiratory Rate 18 12 20 Blood Pressure 125/64 136/66 Pulse Oximetry 94 L 95 04/30/18 11:36 Temperature 97.3 F L Pulse Rate 67 Respiratory Rate 20 Blood Pressure 117/58 L Pulse Oximetry 95 Intake & Output 04/29/18 04/30/18 04/30/18 18:59 06:59 18:59 Intake Total 1999 1620 / 1620 1000 / 1000 Output Total 875 / 875 450 / 450 Balance 1989 745 / 745 550 / 550 Intake: IV 1100 / 1100 1620 / 1620 1000 / 1000 NS Inj 1,000 ML @ 100 mls/hr IV 1000 / 1000 1000 / 1000 1000 / 1000 .CONT .Q10H [facility] Rx#:[id number] Vancomycin Inj 2,000 MG In NS 520 / 520 Inj 500 ML @ 250 mls/hr IV.SIG Q24H [facility] Rx#:[id number] Ancef 1 GM Premix Inj 2 gm In 100 / 100 100 ml @ 0 mls/hr IV.SIG .STK[facility] Rx#:[id number] Rocephin Inj 1,000 MG In NS Inj 100 / 100 100 ML @ 200 mls/hr IV.SIG Q24H [facility] Rx#:[id number] Anesthesia Amount 900 / 900 Output: Urine 875 / 875 450 / 450 Estimated Blood Loss Other: Date of Last Bowel Movement 04/27/18 04/27/18 Narrative: GEN: WDWN, Elderly, Sitting upright in chair in room, dressed in hospital gown, NAD HEENT: Head - normocephalic, atraumatic; Eyes - nonicteric, noninjected, no conjunctival pallor Cardio: RRR, Normal S1/S2, No murmurs/rubs/gallops, Pulses Intact +2 Bilaterally Throughout, Lower Extremity cool to touch, No edema Lungs: Clear to auscultation anteriorly/posteriorly bilaterally, No rales/ rhonchi/crackles/wheezes heard GI: +BS all 4 quadrants, Soft, Nondistended, Nontender Neuro: Alert, Oriented x4, Normal Speech, No focal neuro deficits MSK: R Knee is dressed in compression bandage was not evaluated; No other obvious deformities noted Skin: No rash, jaundice, petechiae, purpura, ecchymoses noted Attending note: GENERAL: This is a well-nourished, well-developed patient, in no apparent distress. CARDIOVASCULAR: Normal rate and regular rhythm without murmurs, gallops, or rubs. RESPIRATORY: Good respiratory efforts. Breath sounds equal and clear to auscultation bilaterally. GASTROINTESTINAL: Abdomen soft, non-tender, non-distended. Normal active bowel sounds MUSCULOSKELETAL: Right knee postop is wrapped with [place] bandage. Neurovascularly intact distally at the feet/toes. NEURO: Alert & Oriented x4 to person, place, time, situation. Moves all ext x4 PSYCH: Appropriate mood and affect. Results - Labs CBC & Chem 7: 04/29/18 05:59 04/29/18 05:59 Laboratory Results - last 24 hr 04/29/18 04/29/18 04/30/18 17:04 21:11 07:10 POC Glucose 368 H 343 H 176 H 04/30/18 11:15 POC Glucose 242 H Microbiology 04/29/18 08:55 Fluid - Other Gram Stain - Final 04/29/18 08:55 Fluid - Other Wound Culture - Preliminary No growth in 24 hours 04/28/18 19:04 Blood - Line Aerobic Blood Culture - Preliminary No growth in 2 days 04/28/18 19:04 Blood - Line Anaerobic Blood Culture - Preliminary No growth in 2 days 04/28/18 18:50 Blood - Line Aerobic Blood Culture - Preliminary No growth in 2 days 04/28/18 18:50 Blood - Line Anaerobic Blood Culture - Preliminary No growth in 2 days 04/29/18 08:55 Fluid - Other Fungal Smear - Final No fungal elements seen 04/28/18 15:38 Fluid - Synovial Fluid Gram Stain - Final 04/28/18 15:38 Fluid - Synovial Fluid Body Fluid Culture - Preliminary No growth in 48 hours Assessment and Plan - Plan 82yo Male w/ Hx of Type 2 Diabetes, Gout, HTN, Hyperlipidemia, CAD s/ p Triple Bypass (1993), Osteoarthritis s/p bilateral Knee Replacements (2002, 2003) who was admitted on 04/28/18 after presenting to the ED c/o worsening 8/10 Right Knee Pain, Swelling, and Erythema. Right Knee Joint synovial fluid was cloudy, RBC (900H), WBC (47684F), Neutrophils (89H), and Negative for Crystals indicating Septic Joint of the Right Knee. Cultures of synovial fluid have failed to grow any organisms at time of this note. X-ray of R. Knee showed Large Suprapatellar Knee Joint Effusion, Moderate Osteoarthritis of the patellofemoral Joint, Mild Osteoarthritis of the Lateral Femoral Tibial Joint, and No acute fracture/dislocation. 1) Right Knee Septic Joint - most likely secondary to infection s/p artificial joint and recent abx vs gout/pseudogout vs bursitis vs other infectious arthritis * acute onset pain/swelling 5 days ago * Orthopedics following, patient underwent right knee arthroscopic irrigation and debridement * Continue IV Ceftriaxone and Vancomycin. * Infectious disease consulted. 2) Knee Pain - secondary to above * Meds: Continue [place] 10-325mg q 4hrs prn for pain 3) Constipation - chronic * Meds: Stool Softeners prn 4) Type 2 Diabetes - stable * Continue Home Meds - Levimir Insulin, Metformin 1000mg BID, Glimepiride 1mg once daily 5) HTN - stable * Continue Home Meds - Coreg 6.25mg once daily 6) Hyperlipidemia - stable * Continue Home Meds - Zetia 10mg once daily, Atorvastatin 40mg q HS 7) Gout - stable * Continue Home Meds - Allopurinol 100mg once daily 8) Coronary Artery Disease - stable, s/p Triple Bypass (1993) * Continue Home Meds - ASA 81mg once daily 9) DVT Prophylaxis - * Start anticoagulation when okay with orthopedic surgery. - Attending Attestation The exam, history, and the medical decision-making described in the above note were completed with the assistance of the medical student Sanjay Ku. I reviewed, edited and agree with the findings presented. I attest that I had a [id number] encounter with the patient on the same day, and personally performed and documented my assessment and findings in the medical record. 82-year-old male admitted with right septic knee joint. Primary source is unclear. He was recently treated for diverticulitis and most recently probably was given antibiotics for tooth extraction. So far fluid cultures are negative. We will continue broad-spectrum antibiotics with Rocephin and vancomycin. Infectious disease consulted for recommendations. We will continue the patient's home medications as noted above.
[2018-04-30] MEDS: Insulin Detemir Inj 1,000 UNIT/10 ML Vial SQ SCH (21:43)
--- NOTE | 2018-04-30 23:01 | P.PNOP ---
Subjective Interval history: No overnight events. Reports continued right knee pain. Cultures no growth to date. Physical Exam Vital signs: Vital Signs 04/30/18 00:00 04/30/18 04:00 04/30/18 07:00 Temperature 97.8 F 97.6 F Pulse Rate 80 84 Respiratory Rate 18 18 12 Blood Pressure 121/58 L 125/64 Pulse Oximetry 91 L 94 L 04/30/18 07:59 04/30/18 11:36 04/30/18 15:34 Temperature 97.3 F L 97.3 F L 97.6 F Pulse Rate 70 67 71 Respiratory Rate 20 20 20 Blood Pressure 136/66 117/58 L 148/66 H Pulse Oximetry 95 95 98 Intake & Output 04/30/18 04/30/18 05/01/18 06:59 18:59 06:59 Intake Total 1620 / 1620 1999 / 1999 100 / 100 Output Total 875 / 875 1250 / 1250 Balance 745 / 745 750 / 750 100 / 100 Intake: IV 1620 / 1620 1999 / 1999 100 / 100 NS Inj 1,000 ML @ 100 mls/hr IV 1000 / 1000 1999 / 1999 .CONT .Q10H [facility] Rx#:[id number] Vancomycin Inj 2,000 MG In NS 520 / 520 Inj 500 ML @ 250 mls/hr IV.SIG Q24H [facility] Rx#:[id number] Rocephin Inj 1,000 MG In NS Inj 100 / 100 100 / 100 100 ML @ 200 mls/hr IV.SIG Q24H [facility] Rx#:[id number] Output: Urine 875 / 875 1250 / 1250 Other: Date of Last Bowel Movement 04/27/18 Narrative: right leg dressing clean, dry, intact. +DP. +EHL/FHL/PF/DF, SILT. Results - Labs CBC & Chem 7: 04/29/18 05:59 04/29/18 05:59 Laboratory Results - last 24 hr 04/30/18 04/30/18 04/30/18 07:10 11:15 13:18 ESR 104 H POC Glucose 176 H 242 H C-Reactive Protein 04/30/18 04/30/18 04/30/18 13:18 17:09 20:36 ESR POC Glucose 304 H 245 H C-Reactive Protein 13.40 H Microbiology 04/29/18 08:55 Fluid - Other Acid Fast Bacilli Smear - Final No acid fast bacilli seen 04/29/18 08:55 Fluid - Other Gram Stain - Final 04/29/18 08:55 Fluid - Other Wound Culture - Preliminary No growth in 24 hours 04/28/18 19:04 Blood - Line Aerobic Blood Culture - Preliminary No growth in 2 days 04/28/18 19:04 Blood - Line Anaerobic Blood Culture - Preliminary No growth in 2 days 04/28/18 18:50 Blood - Line Aerobic Blood Culture - Preliminary No growth in 2 days 04/28/18 18:50 Blood - Line Anaerobic Blood Culture - Preliminary No growth in 2 days 04/29/18 08:55 Fluid - Other Fungal Smear - Final No fungal elements seen 04/28/18 15:38 Fluid - Synovial Fluid Gram Stain - Final 04/28/18 15:38 Fluid - Synovial Fluid Body Fluid Culture - Preliminary No growth in 48 hours Assessment and Plan - Assessment and Plan 82 year old male POD 1 s/p right knee arthroscopic I&D Plan: Follow cultures Continue antibiotics per ID Wound check tomorrow Continue PT WBAT RLE
[2018-04-30] MEDS: Vancomycin Inj 2,000 MG in Sodium Chlor 0.9% Inj 500 ML IV.SIG SCH (23:59)
--- NOTE | 2018-05-01 08:42 | P.PNOP ---
Subjective Interval history: No new issues. Complains of right knee pain, as well as aches and pains all over. States he was able to walk with PT. Cultures still no growth. Physical Exam Vital signs: Vital Signs 04/30/18 11:36 04/30/18 15:34 04/30/18 20:00 Temperature 97.3 F L 97.6 F 97.4 F L Pulse Rate 67 71 74 Respiratory Rate 20 20 18 Blood Pressure 117/58 L 148/66 H 137/65 Pulse Oximetry 95 98 93 L 05/01/18 00:00 05/01/18 01:58 05/01/18 04:00 Temperature 98.0 F 98.2 F Pulse Rate 68 68 Respiratory Rate 18 18 18 Blood Pressure 117/58 L 131/63 Pulse Oximetry 95 95 05/01/18 08:00 Temperature 97.9 F Pulse Rate 81 Respiratory Rate 20 Blood Pressure 173/77 H Pulse Oximetry 98 Intake & Output 04/30/18 05/01/18 05/01/18 18:59 06:59 18:59 Intake Total 1999 620 / 620 Output Total 1250 / 1250 725 / 725 Balance 750 / 750 -105 / -105 Intake: IV 1999 620 / 620 NS Inj 1,000 ML @ 100 mls/hr IV 1999 .CONT .Q10H [facility] Rx#:[id number] Vancomycin Inj 2,000 MG In NS 520 / 520 Inj 500 ML @ 250 mls/hr IV.SIG Q24H [facility] Rx#:[id number] Rocephin Inj 1,000 MG In NS Inj 100 / 100 100 ML @ 200 mls/hr IV.SIG Q24H [facility] Rx#:[id number] Output: Urine 1250 / 1250 725 / 725 Narrative: right knee with some moderate swelling, no erythema, portal sites clean/dry/ intact Neurovascularly intact distally Results - Labs CBC & Chem 7: 04/29/18 05:59 05/01/18 05:36 Laboratory Results - last 24 hr 04/30/18 04/30/18 04/30/18 11:15 13:18 13:18 ESR 104 H Creatinine Estimated GFR POC Glucose 242 H C-Reactive Protein 13.40 H 04/30/18 04/30/18 05/01/18 17:09 20:36 05:36 ESR Creatinine 1.00 Estimated GFR 71 L POC Glucose 304 H 245 H C-Reactive Protein Microbiology 04/29/18 08:55 Fluid - Other Gram Stain - Final 04/29/18 08:55 Fluid - Other Wound Culture - Preliminary No growth in 48 hours 04/28/18 15:38 Fluid - Synovial Fluid Gram Stain - Final 04/28/18 15:38 Fluid - Synovial Fluid Body Fluid Culture - Final No growth in 72 hours (aerobically and anaerobically ) 04/29/18 08:55 Fluid - Other Acid Fast Bacilli Smear - Final No acid fast bacilli seen 04/28/18 19:04 Blood - Line Aerobic Blood Culture - Preliminary No growth in 2 days 04/28/18 19:04 Blood - Line Anaerobic Blood Culture - Preliminary No growth in 2 days 04/28/18 18:50 Blood - Line Aerobic Blood Culture - Preliminary No growth in 2 days 04/28/18 18:50 Blood - Line Anaerobic Blood Culture - Preliminary No growth in 2 days 04/29/18 08:55 Fluid - Other Fungal Smear - Final No fungal elements seen Assessment and Plan - Assessment and Plan 82 year old male POD 2 s/p right knee arthroscopic I&D Plan: Follow cultures Continue antibiotics per ID Daily dry dressing changes to right knee Continue PT WBAT RLE Clear for discharge from orthopedic standpoint once ID plan finalized; follow up in 1-2 weeks
[2018-05-01] MEDS: Carvedilol 6.25 MG Tablet PO SCH ×2 (09:06→21:40)
[2018-05-01] MEDS: Insulin NovoLOG Aspart Correctional Sugar Inj SQ SCH ×4 (09:06→21:53)
[2018-05-01] MEDS: Senna/Docusate Sodium 8.6/50 MG Tablet PO SCH ×2 (09:06→21:39)
[2018-05-01] MEDS: Sod Chloride 0.9% Inj 1,000 ML IV.CONT SCH ×2 (09:09→18:15)
--- NOTE | 2018-05-01 13:32 | P.PNIM ---
Subjective Interval history: Patient reports he is feeling okay today. He has not been out of bed yet today. Pain is controlled. Physical Exam Vital signs: Vital Signs 04/30/18 15:34 04/30/18 20:00 05/01/18 00:00 Temperature 97.6 F 97.4 F L 98.0 F Pulse Rate 71 74 68 Respiratory Rate 20 18 18 Blood Pressure 148/66 H 137/65 117/58 L Pulse Oximetry 98 93 L 95 05/01/18 01:58 05/01/18 04:00 05/01/18 08:00 Temperature 98.2 F 97.9 F Pulse Rate 68 81 Respiratory Rate 18 18 20 Blood Pressure 131/63 173/77 H Pulse Oximetry 95 98 05/01/18 12:00 Temperature 98.4 F Pulse Rate 76 Respiratory Rate 18 Blood Pressure 108/56 L Pulse Oximetry 91 L Intake & Output 04/30/18 05/01/18 05/01/18 18:59 06:59 18:59 Intake Total 1999 620 / 620 Output Total 1250 / 1250 725 / 725 Balance 750 / 750 -105 / -105 Intake: IV 1999 620 / 620 NS Inj 1,000 ML @ 100 mls/hr IV 1999 .CONT .Q10H [facility] Rx#:[id number] Vancomycin Inj 2,000 MG In NS 520 / 520 Inj 500 ML @ 250 mls/hr IV.SIG Q24H [facility] Rx#:[id number] Rocephin Inj 1,000 MG In NS Inj 100 / 100 100 ML @ 200 mls/hr IV.SIG Q24H [facility] Rx#:[id number] Output: Urine 1250 / 1250 725 / 725 Narrative: GENERAL: This is a well-nourished, well-developed patient, in no apparent distress. CARDIOVASCULAR: Normal rate and regular rhythm without murmurs, gallops, or rubs. RESPIRATORY: Good respiratory efforts. Breath sounds equal and clear to auscultation bilaterally. GASTROINTESTINAL: Abdomen soft, non-tender, non-distended. Normal active bowel sounds MUSCULOSKELETAL: Right knee postop is wrapped with [place] bandage. Neurovascularly intact distally at the feet/toes. NEURO: Alert & Oriented x4 to person, place, time, situation. Moves all ext x4 PSYCH: Appropriate mood and affect. Results - Labs CBC & Chem 7: 04/29/18 05:59 05/01/18 05:36 Laboratory Results - last 24 hr 04/30/18 04/30/18 04/30/18 13:18 13:18 17:09 ESR 104 H Creatinine Estimated GFR POC Glucose 304 H C-Reactive Protein 13.40 H 04/30/18 05/01/18 20:36 05:36 ESR Creatinine 1.00 Estimated GFR 71 L POC Glucose 245 H C-Reactive Protein Microbiology 04/28/18 19:04 Blood - Line Aerobic Blood Culture - Preliminary No growth in 3 days 04/28/18 19:04 Blood - Line Anaerobic Blood Culture - Preliminary No growth in 3 days 04/28/18 18:50 Blood - Line Aerobic Blood Culture - Preliminary No growth in 3 days 04/28/18 18:50 Blood - Line Anaerobic Blood Culture - Preliminary No growth in 3 days 04/29/18 08:55 Fluid - Other Gram Stain - Final 04/29/18 08:55 Fluid - Other Wound Culture - Preliminary No growth in 48 hours 04/28/18 15:38 Fluid - Synovial Fluid Gram Stain - Final 04/28/18 15:38 Fluid - Synovial Fluid Body Fluid Culture - Final No growth in 72 hours (aerobically and anaerobically ) 04/29/18 08:55 Fluid - Other Acid Fast Bacilli Smear - Final No acid fast bacilli seen 04/29/18 08:55 Fluid - Other Fungal Smear - Final No fungal elements seen Assessment and Plan - Plan 82-year-old male admitted with right septic knee joint. Primary source is unclear. He was recently treated for diverticulitis and most recently probably was given antibiotics for tooth extraction. So far fluid cultures are negative. We will continue broad-spectrum antibiotics with Rocephin and vancomycin. Infectious disease consulted for recommendations. We will continue the patient's home medications as noted above. 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 * acute onset pain/swelling 5 days ago * Orthopedics following, patient underwent right knee arthroscopic irrigation and debridement * Continue IV Ceftriaxone and Vancomycin. * Infectious disease consulted. * Continue [place] 10-325mg q 4hrs prn for pain * Continue rehab effort with physical therapy Constipation - chronic * Stool Softeners prn Type 2 Diabetes - stable * Continue Home Meds - Levimir Insulin, Metformin 1000mg BID, Glimepiride 1mg once daily HTN - stable * Continue Home Meds - Coreg 6.25mg once daily Hyperlipidemia - stable * Continue Home Meds - Zetia 10mg once daily, Atorvastatin 40mg q HS Gout - stable * Continue Home Meds - Allopurinol 100mg once daily Coronary Artery Disease - stable, s/p Triple Bypass (1993) * Continue Home Meds - ASA 81mg once daily DVT Prophylaxis - * Start anticoagulation when okay with orthopedic surgery.
--- NOTE | 2018-05-01 17:43 | P.CONID ---
History of Present Illness Service: ID Consult date: 05/01/18 Requesting Physician: Kamryn Calzada Reason for Consult: right knee septic arthritis/acute prosthetic joint infection Primary Care Provider: Theodora Pickett MD History of Present Illness: 82 yo male with h/o prosthetic R knee in 2002 H/o DM had no problems untill few days ago when he developped severe R knee pain 6 days prior to it he had a tooth extraction amn 5 days prior a minor skin surgery No antibitics use for what ever reason for at least 1 month prior to this presentation He presented with the above complaint No feer, no leukocytosis ESR 104 XR showed Large suprapatellar knee joint effusion. Pt had aspiration of the synovial fluid It had 28 K of WBC and underwent laparoscopic I+D No growth in both diagnostic and intraop specimen Blood clx are negative as well Review of Systems All other systems reviewed negative except as stated in HPI PMFSH - History History Provided By: Patient - Medical History Medical History: Medical History (Last Updated 05/01/18 @ 17:40 by Jo Cooley MD) Coronary artery disease Diabetes - Surgical History Surgical History: Surgical History (Last Reviewed 05/01/18 @ 17:38 by Jo Cooley MD) H/O elbow surgery History of cholecystectomy History of knee replacement S/P CABG x 4 - Social History I have reviewed the patient's Social History: Yes - Tobacco History Second Hand Smoke Exposure: No Tobacco Use In Past 30 Days: No Smoking Status: Former smoker - Alcohol History How Often Do You Have a Drink Containing Alcohol: Never - Substance Use History Substance History: No History of Abuse - Travel History Recent Travel in the [place] Within the Last 8 Weeks: No Recent Travel Out of the Country Within the Last 8 Weeks: No - Immunization History Tetanus Immunization: <5 Years Medications and Allergies Active Medications: Active Medications Acetaminophen (Tylenol) 650 mg PO Q4H PRN PRN Reason: Temp > 100.4 Hydrocodone Bitart/Acetaminophen ([place] 5/325) 1 tab PO Q4H PRN PRN Reason: PAIN 3-5 Hydrocodone Bitart/Acetaminophen ([place] 10/325) 1 tab PO Q4H PRN PRN Reason: PAIN 6-10 Last Admin: 05/01/18 15:21 Dose: 1 tab Al Hydroxide/Mg Hydroxide (Milk Of Magnesia Liq) 30 ml PO Q12H PRN PRN Reason: Mild Constipation Atorvastatin Calcium (Lipitor) 40 mg PO [facility] Last Admin: 04/30/18 20:27 Dose: 40 mg Bisacodyl (Dulcolax Supp) 10 mg RECTAL DAILY PRN PRN Reason: SEVERE CONSITIPATION Carvedilol (Coreg) 6.25 mg PO BID [facility] Last Admin: 05/01/18 09:06 Dose: 6.25 mg Dextrose (D50w Vial) 50 ml IV.PUSH UNSCH PRN PRN Reason: PER HYPOGLYCEMIA PROTOCOL Glucagon (Glucagon Inj) 1 mg OTHER PRN PRN PRN Reason: for Hypoglycemia Protocol Ceftriaxone Sodium 1,000 mg/ (Sodium Chloride) 100 mls @ 200 mls/hr IV.SIG Q24H [facility] Last Infusion: 04/30/18 20:58 Dose: Infused Sodium Chloride (Ns Inj) 1,000 mls @ 100 mls/hr IV.CONT .Q10H [facility] Last Admin: 05/01/18 09:09 Dose: Not Given Vancomycin HCl 2,000 mg/ (Sodium Chloride) 520 mls @ 250 mls/hr IV.SIG Q24H [facility] Last Infusion: 05/01/18 02:04 Dose: Infused Insulin Aspart (Novolog Insulin [place]al Sugar Inj) 0 unit SQ [facility]; Protocol Last Admin: 05/01/18 17:01 Dose: Not Given Insulin Detemir (Levemir Inj) 20 unit SQ [facility] Last Admin: 04/30/18 21:43 Dose: 20 unit Lactulose (Lactulose Liq) 30 ml PO DAILY PRN PRN Reason: SEVERE CONSITIPATION Miscellaneous Information ([facility] Ordered Lab Info) 0 each OTHER ONCE ONE Stop: 05/01/18 22:46 Ondansetron HCl (Zofran Inj) 4 mg IV.PUSH Q6H PRN PRN Reason: NAUSEA OR VOMITING Pharmacy Profile Note (Vancomycin Consult Pharmacy) 1 each OTHER UNSCH PRN PRN Reason: Pharmacy to dose Senna/Docusate Sodium (Dionne-Colace) 1 tab PO BID [facility] Last Admin: 05/01/18 09:06 Dose: 1 tab Sennosides (Senokot) 17.2 mg PO Q12H PRN PRN Reason: Moderate Constipation Sodium Chloride (Ns Flush) 2 ml IV.FLUSH BID [facility] Last Admin: 05/01/18 09:09 Dose: Not Given Sodium Chloride (Ns Flush) 2 ml IV.FLUSH PRN PRN PRN Reason: FLUSH AFTER USING IV ACCESS Allergies Allergy/AdvReac Type Severity Reaction Status Date / Time levofloxacin Allergy Severe Rash Verified 05/01/18 17:42 Home Medications Medication Instructions Recorded Confirmed Type allopurinol 100 mg PO DAILY 04/29/18 04/29/18 History aspirin [Aspir-81] 81 mg PO DAILY 04/29/18 04/29/18 History ezetimibe [Zetia] 10 mg PO DAILY 04/29/18 04/29/18 History glimepiride 1 mg PO QAM 04/29/18 04/29/18 History insulin detemir U-100 [Levemir 42 unit SUBCUT QPM 04/29/18 04/29/18 History U-100 Insulin] metformin 1,000 mg PO BID 04/29/18 04/29/18 History rosuvastatin [Crestor] 20 mg PO DAILY 04/29/18 04/29/18 History Exam Vital signs: Vital Signs 04/30/18 20:00 05/01/18 00:00 05/01/18 01:58 Temperature 97.4 F L 98.0 F Pulse Rate 74 68 Respiratory Rate 18 18 18 Blood Pressure 137/65 117/58 L Pulse Oximetry 93 L 95 05/01/18 04:00 05/01/18 08:00 05/01/18 12:00 Temperature 98.2 F 97.9 F 98.4 F Pulse Rate 68 81 76 Respiratory Rate 18 18 18 Blood Pressure 131/63 173/77 H 108/56 L Pulse Oximetry 95 98 91 L Intake & Output 04/30/18 05/01/18 05/01/18 18:59 06:59 18:59 Intake Total 1999 620 / 620 Output Total 1250 / 1250 725 / 725 Balance 750 / 750 -105 / -105 Weight 90.718 kg Intake: IV 1999 620 / 620 NS Inj 1,000 ML @ 100 mls/hr IV 1999 .CONT .Q10H [facility] Rx#:[id number] Vancomycin Inj 2,000 MG In NS 520 / 520 Inj 500 ML @ 250 mls/hr IV.SIG Q24H [facility] Rx#:[id number] Rocephin Inj 1,000 MG In NS Inj 100 / 100 100 ML @ 200 mls/hr IV.SIG Q24H [facility] Rx#:[id number] Output: Urine 1250 / 1250 725 / 725 Other: Date of Last Bowel Movement 04/27/18 - Constitutional no acute distress, average body habitus - Routine HEENT Exam Head: Present: normocephalic, atraumatic Eye: Present: EOMI, PERRL ENT: Present: mucous membranes moist, oropharynx clear - Routine Neck Exam Present: supple. Absent: JVD, lymphadenopathy - Routine Respiratory Exam Present: CTA bilaterally. Absent: accessory muscle use, rales, respiratory distress - Routine Cardiovascular Exam Present: RRR, S1, S2. Absent: murmur, gallop, rubs - Routine Abdominal Exam Present: soft, normoactive bowel sounds. Absent: tenderness, distended, organomegaly, mass - Routine Extremities Exam Absent: cyanosis, clubbing, edema Comments: R knee: small lap incsions dry and clean stitches in minimal ecdema, minimal erythema - Routine Skin Exam Present: intact, dry, warm - Routine Neurological Exam Present: alert, oriented X3, CN II-XII intact. Absent: sensory deficit, motor deficit - Routine Psychiatric Exam Present: normal affect, cooperative Results - Labs CBC & Chem 7: 04/29/18 05:59 05/01/18 05:36 Labs: Laboratory Results - last 24 hr 04/30/18 05/01/18 20:36 05:36 Creatinine 1.00 Estimated GFR 71 L POC Glucose 245 H - Imaging ITS Impressions Knee X-Ray 04/28/18 00:00 CONCLUSION: 1. Large suprapatellar knee joint effusion. 2. Moderate osteoarthritis involving the patellofemoral joint and mild osteoarthritis involving the lateral femoral tibial joint. 3. No acute fracture or dislocation. Assessment and Plan - Plan Culture negative probable prosthetic septic joint, R knee cont current abx for now
[2018-05-01] MEDS: Insulin Detemir Inj 1,000 UNIT/10 ML Vial SQ SCH (21:53)
[2018-05-01] MEDS ORDERED: Pharmacy Ordered Lab Info OTHER ONE (22:45)
[2018-05-01] MEDS: Vancomycin Inj 2,000 MG in Sodium Chlor 0.9% Inj 500 ML IV.SIG SCH (23:49)
[2018-05-02] MEDS: Sod Chloride 0.9% Inj 1,000 ML IV.CONT SCH ×2 (06:03→13:45)
[2018-05-02 07:12] LABS: Baso # (Auto) 0.1 th/mm3 (0.0-0.2); Baso % (Auto) 0.6 % (0.0-2.0); Eos # (Auto) 0.2 th/mm3 (0.0-0.4); Eos % (Auto) 2.7 % (0.0-4.0); Hemoglobin 10.8 gm/dL (13.0-17.0); Lymph # (Auto) 1.9 th/mm3 (1.0-4.8); Lymph % (Auto) 24.1 % (9.0-44.0); Mean Corpuscular HGB Conc 33.7 % (32.0-36.0); Mean Corpuscular Hemoglobin 30.9 pg (27.0-34.0); Mean Corpuscular Volume 91.7 fL (80.0-100.0); Mean Platelet Volume 8.8 fL (7.0-11.0); Mono % (Auto) 12.6 % (0.0-8.0); Neut # (Auto) 4.8 th/mm3 (1.8-7.7); Platelet Count 199 th/mm3 (150-450); Red Blood Count 3.49 mil/mm3 (4.50-5.90); Red Cell Distribution Width 16.4 % (11.6-17.2); White Blood Count 8.1 th/mm3 (4.0-11.0)
[2018-05-02 07:28] LABS: Carbon Dioxide 24.7 meq/L (21.0-32.0); Potassium 3.9 meq/L (3.5-5.1)
[2018-05-02] MEDS: Senna/Docusate Sodium 8.6/50 MG Tablet PO SCH ×2 (09:08→22:28)
[2018-05-02] MEDS: Insulin NovoLOG Aspart Correctional Sugar Inj SQ SCH ×4 (09:08→22:29)
[2018-05-02] MEDS: Carvedilol 6.25 MG Tablet PO SCH ×2 (09:08→22:28)
--- NOTE | 2018-05-02 15:38 | P.DCO ---
Post Hospital Infusion Therapy - Infusion Therapy Location of Infusion Therapy: Home Health Care IV Infusion Order - Patient Information Patient Weight: 90.7 kg - Diagnosis (1) Septic joint of right knee joint Code(s): M00.9 - Pyogenic arthritis, unspecified - Administer Medication Vancomycin Dose: 2 grams IV Directions: q 24 hours Start Treatment: 05/02/18 Stop Treatment: 06/11/18 - Additional Information Venous Access: PICC Line Additional Instructions: [x] Peripheral flush and dressing changes per protocol [x] Implanted port and central vp cardiovascular service line: * Implanted port: 10 ml Normal Saline followed by 5 ml Heparin 100 units/ml Heparin flush after each use and monthly to maintain. [] May leave port accessed during therapy. [] May leave peripheral site accessed for duration of therapy. [x] If patient has SOB or respiratory distress, check oxygen saturation. If less than 90% or clinical signs of respiratory distress, administer oxygen at 2 L/min. via nasal cannula and notify physician. [x] Anaphylaxis/Reaction orders: * Stop infusion. * Keep IV line open with saline flush. * Notify physician. * Monitor vital signs every 15 minutes until symptoms resolve. * Check Oxygen saturation; Oxygen at 2 L/min. via nasal cannula if less than 90% or clinical signs of respiratory distress. * Administer diphenhydramine (Benadryl) 25 mg IV STAT, (unless patient has received as pre-med). May repeat once, if necessary. * Solu-Cortef 250 mg IVP over 30-60 seconds, use 100 mg vials for each dissolution. * Epinephrine (1mg/1 ml) 0.3 mg subcutaneously or IVP now with any signs of respiratory distress. * Check with physician for new additional pre-med orders if patient is re- challenged or re-treated. [x] May remove PICC line when treatment complete, after confirming with Physician. [x] If the patient is admitted to the hospital, the ED, or transferred via [facility] , complete transfer form including medication reconciliation order sheet. Weekly Labs: CBC w/diff, Creatinine, CRP, SED Rate, Vancomycin Trough - Case Management Consult Case Management Consult-IVF: Yes - Patient Information Allergies levofloxacin Allergy (Severe, Verified 05/01/18 17:42) Rash
--- NOTE | 2018-05-02 15:55 | P.PNID ---
Subjective Remarks: pt doing good no new complaints\ FInal cultures are negative Unremarkable travel history, Just [place] and [place] NO unusual eating habits NO animal exposures Antibiotics: vanco CFTX Allergies/Adverse Reactions: Allergies levofloxacin Allergy (Severe, Verified 05/01/18 17:42) Rash Objective Vital Signs 05/01/18 16:00 05/01/18 20:00 05/02/18 00:00 Temperature 97.5 F L 98.1 F 99.4 F Pulse Rate 77 105 H 112 H Respiratory Rate 20 17 20 Blood Pressure 163/72 H 125/66 134/66 Pulse Oximetry 94 L 93 L 94 L 05/02/18 01:34 05/02/18 04:00 05/02/18 05:14 Temperature 98.6 F Pulse Rate 87 Respiratory Rate 18 20 18 Blood Pressure 132/65 Pulse Oximetry 93 L 05/02/18 08:00 05/02/18 09:08 05/02/18 12:00 Temperature 97.8 F 98.0 F Pulse Rate 81 74 Respiratory Rate 18 18 20 Blood Pressure 128/65 106/53 L Pulse Oximetry 93 L 95 Intake & Output 05/01/18 05/02/18 05/02/18 18:59 06:59 18:59 Intake Total 1620 / 1620 Output Total 550 / 550 Balance 1070 / 1070 Weight 90.7 kg 90.7 kg Intake: IV 1620 / 1620 NS Inj 1,000 ML @ 100 mls/hr IV 1000 / 1000 .CONT .Q10H [facility] Rx#:[id number] Vancomycin Inj 2,000 MG In NS 520 / 520 Inj 500 ML @ 250 mls/hr IV.SIG Q24H [facility] Rx#:[id number] Rocephin Inj 1,000 MG In NS Inj 100 / 100 100 ML @ 200 mls/hr IV.SIG Q24H [facility] Rx#:[id number] Output: Urine 550 / 550 Other: Date of Last Bowel Movement 04/27/18 04/28/18 19:04 Blood - Line Aerobic Blood Culture - Preliminary No growth in 4 days 04/28/18 19:04 Blood - Line Anaerobic Blood Culture - Preliminary No growth in 4 days 04/28/18 18:50 Blood - Line Aerobic Blood Culture - Preliminary No growth in 4 days 04/28/18 18:50 Blood - Line Anaerobic Blood Culture - Preliminary No growth in 4 days 04/29/18 08:55 Fluid - Other Gram Stain - Final 04/29/18 08:55 Fluid - Other Wound Culture - Final No growth in 72 hours (aerobically and anaerobically ) 04/28/18 15:38 Fluid - Synovial Fluid Gram Stain - Final 04/28/18 15:38 Fluid - Synovial Fluid Body Fluid Culture - Final No growth in 72 hours (aerobically and anaerobically ) 04/29/18 08:55 Fluid - Other Acid Fast Bacilli Smear - Final No acid fast bacilli seen 04/29/18 08:55 Fluid - Other Mycobacterial Culture - Pending 04/29/18 08:55 Fluid - Other Fungal Smear - Final No fungal elements seen 04/29/18 08:55 Fluid - Other Fungal Culture - Pending Lab - Hematology Results 05/02/18 05:25 WBC 8.1 RBC 3.49 L Hgb 10.8 L Hct 32.0 L MCV 91.7 MCH 30.9 MCHC 33.7 RDW 16.4 Plt Count 199 MPV 8.8 Neut % (Auto) 60.0 Lymph % (Auto) 24.1 [place] % (Auto) 12.6 H Eos % (Auto) 2.7 Baso % (Auto) 0.6 Neut # (Auto) 4.8 Lymph # (Auto) 1.9 [place] # (Auto) 1.0 H Eos # (Auto) 0.2 Baso # (Auto) 0.1 WBC Differential . Differential Comment Auto diff final Lab - Chemistry Results 04/30/18 04/30/18 05/01/18 17:09 20:36 05:36 Sodium Potassium Chloride Carbon Dioxide Anion Gap BUN Creatinine 1.00 Estimated GFR 71 L POC Glucose 304 H 245 H Random Glucose Calcium 05/01/18 05/02/18 05/02/18 21:39 05:25 09:03 Sodium 138 Potassium 3.9 Chloride 105 Carbon Dioxide 24.7 Anion Gap 8 BUN 18 Creatinine 1.03 Estimated GFR 69 L POC Glucose 257 H 149 H Random Glucose 155 H Calcium 8.0 L Imaging: ITS Impressions Knee X-Ray 04/28/18 00:00 CONCLUSION: 1. Large suprapatellar knee joint effusion. 2. Moderate osteoarthritis involving the patellofemoral joint and mild osteoarthritis involving the lateral femoral tibial joint. 3. No acute fracture or dislocation. Physical Exam: GENERAL: NAD SKIN: Warm and dry. CARDIOVASCULAR: Regular rate and rhythm. RESPIRATORY: No accessory muscle use. Clear to auscultation. Breath sounds equal bilaterally. GASTROINTESTINAL: Abdomen soft, non-tender, nondistended. Hepatic and splenic margins not palpable. MUSCULOSKELETAL: Extremities without clubbing, cyanosis, or edema. R knee dressing 8in place intact NEUROLOGICAL: Awake and alert. Non focal PSYCHIATRIC: Appropriate mood and affect; Assessment and Plan (1) Septic joint of right knee joint Status: Acute Code(s): M00.9 - Pyogenic arthritis, unspecified - Plan Culture negative probable prosthetic septic joint, R knee despite of negative cultures, strong clinical and lab data in favour of bacterial infection cont vancomycin x 6 weeks Fu AFB, fungal clx untill final PICC OPAT OK to dc home after everything is arranged gabby pt, spouse @ b/s gabby case mngr
--- NOTE | 2018-05-02 17:16 | P.PNIM ---
Subjective Interval history: Patient reports he is feeling okay today. He does have some pain on the right knee. No fevers or chills. Physical Exam Vital signs: Last Vital Signs Temp 97.6 F 05/02/18 16:00 Pulse 81 05/02/18 16:00 Resp 20 05/02/18 16:00 BP 169/72 H 05/02/18 16:00 Pulse Ox 98 05/02/18 16:00 Intake & Output 04/30/18 05/01/18 05/02/18 05/03/18 06:59 06:59 06:59 06:59 Intake Total 3620 / 3620 2620 / 2620 1620 / 1620 Output Total 885 / 885 1974 / 1974 550 / 550 Balance 2735 / 2735 645 / 645 1070 / 1070 Weight 90.718 kg 90.7 kg 90.7 kg Narrative: GENERAL: This is a well-nourished, well-developed patient, in no apparent distress. CARDIOVASCULAR: Normal rate and regular rhythm without murmurs, gallops, or rubs. RESPIRATORY: Good respiratory efforts. Breath sounds equal and clear to auscultation bilaterally. GASTROINTESTINAL: Abdomen soft, non-tender, non-distended. Normal active bowel sounds MUSCULOSKELETAL: Right knee postop is wrapped with [place] bandage. Neurovascularly intact distally at the feet/toes. NEURO: Alert & Oriented x4 to person, place, time, situation. Moves all ext x4 PSYCH: Appropriate mood and affect. Results Labs CBC & Chem 7: 05/02/18 05:25 05/02/18 05:25 Labs: Microbiology 04/28/18 19:04 Blood - Line Aerobic Blood Culture - Preliminary No growth in 4 days 04/28/18 19:04 Blood - Line Anaerobic Blood Culture - Preliminary No growth in 4 days 04/28/18 18:50 Blood - Line Aerobic Blood Culture - Preliminary No growth in 4 days 04/28/18 18:50 Blood - Line Anaerobic Blood Culture - Preliminary No growth in 4 days 04/29/18 08:55 Fluid - Other Gram Stain - Final 04/29/18 08:55 Fluid - Other Wound Culture - Final No growth in 72 hours (aerobically and anaerobically ) Assessment and Plan (1) Septic joint of right knee joint: Code(s): M00.9 - Pyogenic arthritis, unspecified Status: Acute Plan 82-year-old male admitted with right septic knee joint. Primary source is unclear. He was recently treated for diverticulitis and most recently probably was given antibiotics for tooth extraction. So far fluid cultures are negative. We will continue broad-spectrum antibiotics. We will continue the patient's home medications as noted above. 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 * acute onset pain/swelling 5 days ago * Orthopedics following, patient underwent right knee arthroscopic irrigation and debridement * Continue IV Ceftriaxone and Vancomycin. * Infectious disease consulted. * Continue [place] 10-325mg q 4hrs prn for pain * Continue rehab effort with physical therapy * Agree with infectious disease assessment. Although the cultures are negative , there is strong suspicion for bacterial infection. ID recommended continuing IV antibiotics with vancomycin and for 6 weeks. Follow-up AFB and fungal cultures. Constipation - chronic * Stool Softeners prn Type 2 Diabetes - stable * Continue Home Meds - Levimir Insulin, Metformin 1000mg BID, Glimepiride 1mg once daily HTN - stable * Continue Home Meds - Coreg 6.25mg once daily Hyperlipidemia - stable * Continue Home Meds - Zetia 10mg once daily, Atorvastatin 40mg q HS Gout - stable * Continue Home Meds - Allopurinol 100mg once daily Coronary Artery Disease - stable, s/p Triple Bypass (1993) * Continue Home Meds - ASA 81mg once daily DVT Prophylaxis - * Start Heparin Plan to DC tomorrow with Home health and IV abx. Progress Note: Quality VTE Deep Vein Thrombosis/Pulmonary Embolism Present on Admission: No _ (1) Septic joint of right knee joint Qualifiers: Septic arthritis organism:
--- NOTE | 2018-05-02 17:20 | P.DCO ---
Diagnosis (1) Septic joint of right knee joint: Status: Acute Physical Therapy Order: Evaluate and treat, Improve ambulation and Strength and gait training Home Health Nursing Order: Medical education, Wound care and dressing changes, Nursing assessment with vital signs and IV medication administration Case Management Consult Case Management Consult-Home Health: Yes I have seen patient Nik Phillips on 05/02/18. My clinical findings support the need for the requested home health care services because: Infection with risk of complications I certify that my clinical findings support that this patient is homebound because: Unable to use public transportation _ (1) Septic joint of right knee joint Qualifiers: Septic arthritis organism:
[2018-05-02] MEDS: Heparin - SQ 10,000 UNITS/ML Vial SQ SCH (19:19)
[2018-05-02] MEDS: Insulin Detemir Inj 1,000 UNIT/10 ML Vial SQ SCH (22:28)
[2018-05-02] MEDS: Vancomycin Inj 2,000 MG in Sodium Chlor 0.9% Inj 500 ML IV.SIG SCH (22:34)
[2018-05-03] MEDS: Sod Chloride 0.9% Inj 1,000 ML IV.CONT SCH ×2 (03:30→16:48)
[2018-05-03] MEDS: Heparin - SQ 10,000 UNITS/ML Vial SQ SCH (05:48)
--- NOTE | 2018-05-03 08:46 | P.DS ---
DS: Providers Date of admission: 04/28/18 19:16 Primary care physician: Theodora Pickett MD Consults: 04/28/18 18:58 Consult to Orthopedic Surgery Routine Consulting Provider: Kamryn Calzada Reason for Consultation: septic knee joint - Dr. Calzada already notified Notified:: Service Spoke with:: tejas Date Notified:: 04/28/18 Time Notified:: 19:38 Ordering Provider: JASS 04/29/18 09:52 Consult to Infectious Diseases Routine Consulting Provider: Jo Cooley Reason for Consultation: right knee septic arthritis/acute prosthetic joint infection Notified:: Service Spoke with:: EDGARDO Date Notified:: 04/29/18 Time Notified:: 10:19 Ordering Provider: RAY Brief History from admission: This is an 82-year-old male with no significant PMH who presented to the ER with complaints of right knee pain and swelling since (2 days ago). Denies injury/trauma. No h/o similar symptoms. No fever, chills. Pain is constant, 8/10, sharp, worse w/ movement/ambulation, non-radiating. On arrival , BP 142/67, HR 84, O2 sat 98% on RA, Afebrile. CBC essentially unremarkable. INR 1.0. Chemistry unremarkable. S/p tap in ER, Nuc 28,740 and Neutrophils 89% . S/p Vanc/Rocephin in ER. Ortho consulted, will evaluate. DS: Diagnosis Discharge Diagnosis (1) Septic joint of right knee joint: Status: Acute DS: Summary 82-year-old male admitted with right septic knee joint. Primary source is unclear. He was recently treated for diverticulitis and most recently probably was given antibiotics for tooth extraction. The patient was admitted and underwent right knee arthroscopic irrigation and debridement by orthopedics. He was initially treated with IV Rocephin and vancomycin. He was followed by infectious disease. Although his cultures remain negative, there is strong suspicion for bacterial infection therefore ID recommended continuing IV antibiotics with vancomycin for 6 weeks. Patient is discharged on home IV antibiotics. He will continue rehabilitation efforts at home with physical therapy. The rest of the patient's chronic medical conditions remained stable and his home dose medications were continued. Time Spent with Patient Total time spent providing and/or coordinating discharge services: >30 min Quality: VTE Deep Vein Thrombosis/Pulmonary Embolism Present on Admission: No Exam Narrative Exam Narrative: GENERAL: This is a well-nourished, well-developed patient, in no apparent distress. CARDIOVASCULAR: Normal rate and regular rhythm without murmurs, gallops, or rubs. RESPIRATORY: Good respiratory efforts. Breath sounds equal and clear to auscultation bilaterally. GASTROINTESTINAL: Abdomen soft, non-tender, non-distended. Normal active bowel sounds MUSCULOSKELETAL: Right knee postop is wrapped with [place] bandage. Neurovascularly intact distally at the feet/toes. NEURO: Alert & Oriented x4 to person, place, time, situation. Moves all ext x4 PSYCH: Appropriate mood and affect. Results Labs on day of discharge: Labs from last 24 hours 05/03/18 05/03/18 05/02/18 07:46 07:04 19:40 Creatinine 0.83 Estimated GFR 88 L POC Glucose 146 H 191 H 05/02/18 05/02/18 17:24 09:03 Creatinine Estimated GFR POC Glucose 227 H 149 H Preliminary micro results at discharge 04/28/18 19:04 Aerobic Blood Culture - Preliminary Blood - Line No growth in 4 days Anaerobic Blood Culture - Preliminary No growth in 4 days 04/28/18 18:50 Aerobic Blood Culture - Preliminary Blood - Line No growth in 4 days Anaerobic Blood Culture - Preliminary No growth in 4 days Impressions ITS Impressions Knee X-Ray 04/28/18 00:00 CONCLUSION: 1. Large suprapatellar knee joint effusion. 2. Moderate osteoarthritis involving the patellofemoral joint and mild osteoarthritis involving the lateral femoral tibial joint. 3. No acute fracture or dislocation. Discharge Plan Discharge Disposition Patient Disposition: /Home Health Service Discharge Condition Condition: Stable Discharge Order Discharge Orders: Discharge Order (Routine); Ordered 05/03/18 Ordered By: Kwasi Blancas Physicians Team Primary Care Provider: Theodora Pickett Attending Provider: Kwasi Blancas Other Providers: Kamryn Calzada Alexandra Rxs /Orders / Referrals /Forms Prescriptions: New hydrocodone-acetaminophen 5-325 mg Tablet 1 tab PO Q4H PRN (Reason: PAIN 3-5) Qty: 12 RF: 0 Continue allopurinol 100 mg Tablet 100 mg PO DAILY RF: 0 aspirin [Aspir-81] 81 mg Tablet,Delayed Release (Dr/Ec) 81 mg PO DAILY RF: 0 glimepiride 1 mg Tablet 1 mg PO QAM RF: 0 metformin 1,000 mg Tablet 1,000 mg PO BID RF: 0 ezetimibe [Zetia] 10 mg Tablet 10 mg PO DAILY RF: 0 rosuvastatin [Crestor] 20 mg Tablet 20 mg PO DAILY RF: 0 insulin detemir U-100 [Levemir U-100 Insulin] 100 unit/mL Solution 42 unit SUBCUT QPM RF: 0 Referrals: Theodora Pickett MD [Primary Care Provider] - 05/16/18 10:00 am Discharge Instructions Patient Printed Instructions: Hydrocodone/Acetaminophen (By mouth), Sepsis (GEN ) Status ED Status: Left Department Discharge Information Discharge Date/Time: 05/03/18 17:46
[2018-05-03] MEDS: Carvedilol 6.25 MG Tablet PO SCH (09:06)
[2018-05-03] MEDS: Senna/Docusate Sodium 8.6/50 MG Tablet PO SCH (09:06)
[2018-05-03] MEDS: Insulin NovoLOG Aspart Correctional Sugar Inj SQ SCH ×2 (09:07→16:48)
[2018-05-03] MEDS ORDERED: Heparin Central Flush 100 UNIT/ML 5 ML Vial IV.FLUSH ONE (15:14)
--- NOTE | 2018-05-03 15:38 | P.RAD ---
Post PICC Progress Note - Pre Procedure Diagnosis (1) Septic joint of right knee joint - Post Procedure Diagnosis (1) Septic joint of right knee joint - Procedure Procedure: right PICC line placement Procedure Date: 05/03/18 Supervising Radiologist: Markie Babcock MD - Device Side: right Device: single lumen PICC Line Length (cm): 45 Catheter: Power PICC - Plan of Activity Patient to Unit: Nursing Unit
--- NOTE | 2018-05-03 16:06 | IR ---
EXAM DATE: 05/03/2018 3:59 PM EST AGE/SEX: 82 years / Male INDICATIONS: Patient presents with septic right knee joint in need of peripheral intravenous central line placement for antibiotic administration. CLINICAL DATA: This is the patient's initial encounter. Patient reports that signs and symptoms have been present for 4 - 6 days and indicates a pain score of 0/10. MEDICAL/SURGICAL HISTORY: . None. . Elbow surgery, Cholecystectomy, Knee replacement, CABG x4. COMPARISON: No prior exams available for comparison. FLUORO TIME (min): 0.23 IMAGE SERIES: 1 ACCESS SITE: MEDICATION(S): 300 units Heparin IV DEVICE(S): 4 Burmese single lumen 45cm Xcela Power PICC . . PROCEDURE : 1. Ultrasound guidance for venous catheterization. 2. Fluoroscopic guidance. 3. Ultrasound & fluoroscopic guided central venous Power PICC line placement. The risks, benefits and alternatives to the procedure were explained and verbal and written consent w as obtained. The site was prepped in sterile fashion. Full sterile technique was used, including ca p, mask, sterile gloves and gown and a large sterile sheet. Hand hygiene and 2% chlorhexidine prep w as utilized per protocol for cutaneous antisepsis with appropriate dry time for site. Sterile gel a nd sterile probe cover were utilized for ultrasound guidance. The skin and subcutaneous tissues wer e infiltrated with local anesthetic solution. Under direct ultrasound guidance, a suitable vein was accessed and a measuring guidewire was introduc ed and positioned in the central venous system. The ultrasound images depicting access guidance were saved and stored to PACS for permanent record. A Power Injectable PICC line was cut to prescribed length and introduced, positioned with tip at the cavoatrial junction level. The line was flushed and secured per protocol. CONCLUSION: 1. Uncomplicated central venous Power PICC line placement. 2. The PICC line can be used immediately. Electronically signed by: Markie Babcock MD 05/03/2018 4:05 PM EST
--- NOTE | 2018-05-03 19:16 | P.PNIM ---
Physical Exam Vital signs: Last Vital Signs Temp 97.0 F L 05/03/18 11:45 Pulse 74 05/03/18 11:45 Resp 18 05/03/18 11:45 BP 158/88 H 05/03/18 11:45 Pulse Ox 95 05/03/18 11:45 Intake & Output 05/01/18 05/02/18 05/03/18 05/04/18 06:59 06:59 06:59 06:59 Intake Total 2620 / 2620 1620 / 1620 520 / 520 Output Total 1974 / 1974 550 / 550 1425 / 1425 Balance 645 / 645 1070 / 1070 -905 / -905 Weight 90.718 kg 90.7 kg 90.7 kg 90.7 kg Narrative: GENERAL: This is a well-nourished, well-developed patient, in no apparent distress. CARDIOVASCULAR: Normal rate and regular rhythm without murmurs, gallops, or rubs. RESPIRATORY: Good respiratory efforts. Breath sounds equal and clear to auscultation bilaterally. GASTROINTESTINAL: Abdomen soft, non-tender, non-distended. Normal active bowel sounds MUSCULOSKELETAL: Right knee postop is wrapped with [place] bandage. Neurovascularly intact distally at the feet/toes. NEURO: Alert & Oriented x4 to person, place, time, situation. Moves all ext x4 PSYCH: Appropriate mood and affect. Results Labs CBC & Chem 7: 05/02/18 05:25 05/03/18 07:04 Labs: Microbiology 04/28/18 19:04 Blood - Line Aerobic Blood Culture - Final No growth in 5 days 04/28/18 19:04 Blood - Line Anaerobic Blood Culture - Final No growth in 5 days 04/28/18 18:50 Blood - Line Aerobic Blood Culture - Final No growth in 5 days 04/28/18 18:50 Blood - Line Anaerobic Blood Culture - Final No growth in 5 days Imaging Imaging: Impressions PICC Line Insertion 05/03/18 00:00 CONCLUSION: 1. Uncomplicated central venous Power PICC line placement. 2. The PICC line can be used immediately. Assessment and Plan (1) Septic joint of right knee joint: Code(s): M00.9 - Pyogenic arthritis, unspecified Status: Acute Plan 82-year-old male admitted with right septic knee joint. Primary source is unclear. He was recently treated for diverticulitis and most recently probably was given antibiotics for tooth extraction. So far fluid cultures are negative. We will continue broad-spectrum antibiotics. We will continue the patient's home medications as noted above. 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 * acute onset pain/swelling 5 days ago * Orthopedics following, patient underwent right knee arthroscopic irrigation and debridement * Continue IV Ceftriaxone and Vancomycin. * Infectious disease consulted. * Continue [place] 10-325mg q 4hrs prn for pain * Continue rehab effort with physical therapy * Agree with infectious disease assessment. Although the cultures are negative , there is strong suspicion for bacterial infection. ID recommended continuing IV antibiotics with vancomycin and for 6 weeks. Follow-up AFB and fungal cultures. Constipation - chronic * Stool Softeners prn Type 2 Diabetes - stable * Continue Home Meds - Levimir Insulin, Metformin 1000mg BID, Glimepiride 1mg once daily HTN - stable * Continue Home Meds - Coreg 6.25mg once daily Hyperlipidemia - stable * Continue Home Meds - Zetia 10mg once daily, Atorvastatin 40mg q HS Gout - stable * Continue Home Meds - Allopurinol 100mg once daily Coronary Artery Disease - stable, s/p Triple Bypass (1993) * Continue Home Meds - ASA 81mg once daily DVT Prophylaxis - * Start Heparin Plan to DC tomorrow with Home health and IV abx. Progress Note: Quality VTE Deep Vein Thrombosis/Pulmonary Embolism Present on Admission: No _ (1) Septic joint of right knee joint Qualifiers: Septic arthritis organism:
[2018-05-05] MEDS ORDERED: Pharmacy Ordered Lab Info OTHER ONE (22:45)
--- NOTE | 2018-05-07 15:01 | P.OP ---
- Preoperative Diagnosis (1) Septic joint of right knee joint - Postoperative Diagnosis (1) Septic joint of right knee joint Date of procedure: 04/29/18 Procedure: right knee arthroscopic irrigation and debridement Anesthesia: EFREN Surgeon: Kamryn Calzada MD Estimated blood loss (mL): 10 Pathology: other (fluid sent for culture) Operation and Findings: Indications: This is an 82 year old male with prior right knee medial unicompartmental knee arthroplasty who presented to the ED with severe swelling and pain. Aspiration performed by the ED was highly concerning for infection. I discussed risks, benefits, and alternatives with the patient. Risks include but are not limited to continued infection, potential for further surgeries including removal of the implant, as well as continued pain and stiffness. The patient understood these risks and agreed to proceed with arthroscopic irrigation and debridement. Description of Operation: The patient was identified in the preoperative holding area and the correct site clearly marked. He was then brought back to the OR and placed supine on the table. General anesthesia was administered. Preoperative antibiotics were held for culture. The patient's right leg was then placed in the Acufex leg dowd and the left leg well padded. The right leg was then prepped and draped in the usual sterile manner. A timeout was performed prior to start and everyone was in agreement. I began the procedure by making a standard inferolateral portal. I removed the trocar and several mililiters of cloudy appearing joint fluid were expressed. This was collected and sent to the lab for culture. Antibiotics were then given by anesthesia. The scope was inserted and directed to the suprapatellar pouch, where a superolateral outflow portal was created. A medial inferolateral portal was also created under direct visualization. 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 Medial compartment showed his unicompartmental arthroplasty implants to be intact and stable. His ACL appeared to be degenerative and partially torn from its femoral attachment. The knee was copiously irrigated with a total of 6 liters of antibiotic fluid followed by 3 liters of plain irrigation fluid and shaver used for gentle debridement of some scar tissue and synovium. The knee appeared clean at the conclusion of the case. Portal sites were closed with 3-0 nylon suture and covered with sterile dressings. The patient was then awoken from general anesthesia and taken to the recovery room in good condition.
== END 2018-05-03 17:46 | disposition home health service (06) ==
LOC: NEPD 12:14 → NEDA 19:16 → NEPGCP 20:47 → N07 04-29 07:40 → N05 04-29 10:54
PROVIDERS: ADMIT Family Medicine; ATTEND Family Medicine